=== PATIENT | female | born 1955 | race African-American/Black ===

== ENCOUNTER 2017-11-06 10:32 | Outpatient (CLI) | payer OTHER ==
[~2017-11-06 10:32] MED LIST: ISOVUE-370 76%-LOCM 1 ML ONE
== END 2017-11-06 10:33 | disposition home or self-care (01) ==
LOC: BICCT 10:32
PROVIDERS: ATTEND Thoracic Surgery (Cardiothoracic Vascular Surgery)
DX: I70.222 Atherosclerosis of native arteries of extremities with rest pain, left leg (principal); I72.4 Aneurysm of artery of lower extremity
CPT/HCPCS: 75635; 82565

== ENCOUNTER 2018-07-15 16:47 | Inpatient (IN) | payer OTHER ==
[2018-07-15 17:21] LABS: Hemoglobin 6.1 g/dL (12.0-16.0); Mean Corpuscular HGB CONC 28.1 g/dL (32.0-36.0); Mean Corpuscular Hemoglobin 16.6 pg (27.0-31.0); Mean Platelet Volume 5.3 fL (7.4-10.4); Platelet Count 584 thou/uL (130-400); RBC Distribution Width 24.9 % (11.5-14.5); Red Blood Cell (RBC) Count 3.68 mill/uL (4.20-5.40); White Blood Cell (WBC) Count 9.8 thou/uL (4.8-10.8)
[2018-07-15 17:41] LABS: Anisocytosis MODERATE=16-30 cells (100X) (0-5/hpf); Band 2 % (5-11); Elliptocytes SLIGHT = 2-5 cells (100X) (0-1/hpf); Eosinophils 2 % (0-10); Hypochromia MODERATE=16-30 cells (100X) (0-5/hpf); Lymphocytes 22 % (21-51); MDiff Complete? YES; Microcytosis MARKED = >30 cells (100X) (0-5/hpf); Monocytes 4 % (0-10); Neutrophil 70 % (42-75); Platelet Morphology Comment Appears Increased; Target Cells SLIGHT = 2-5 cells (100X) (0-1/hpf)
[2018-07-15 17:46] LABS: ALT (SGPT) 14 U/L (8-55); AST (SGOT) 30 U/L (5-34); Alkaline Phosphatase 141 U/L (40-150); Anion Gap 15 mmol/L (10-20); BUN (Urea Nitrogen) 16 mg/dL (9.8-20.1); Bilirubin, Total Less than 0.2 mg/dL (0.2-1.2); Calc. Creatinine Clearance 0 mL/min (70-130); Carbon Dioxide 18 mmol/L (23-31); Chloride 107 mmol/L (98-107); Estimated GFR-MDRD 65; Globulin 3.4 g/dL (2.4-3.5); Glucose 88 mg/dL (80-115); Lipase 107 U/L (8-78); Potassium 5.1 mmol/L (3.5-5.1); Protein, Total 7.4 g/dL (6.0-8.3); Sodium 135 mmol/L (136-145)
[2018-07-15] MEDS ORDERED: Pantoprazole 40 MG VIAL ONE (18:44)
[2018-07-15 18:56] LABS: Bilirubin Negative (Negative); Blood, Urine Negative (Negative); Clarity CLOUDY (Clear); Glucose, Urine (Dipstick) Negative (Negative); Leukocyte Moderate (Negative); Nitrite Negative (Negative); Protein, Urine (Dipstick) Negative (Neg-Trace); Specific Gravity, Urine 1.008 (1.002-1.036); Urobilinogen 0.2 mg/dL (0.2-1.0); pH, Urine 5.5 (5.0-9.0)
[2018-07-15 18:59] LABS: Bacteria/HPF Rare-Few HPF (None Seen); Hyaline Casts/LPF 0-3 HYALINE CAST LPF (0-3 Hyaline); RBC/HPF 0-3 HPF (0-3)
[2018-07-15] MEDS ORDERED: Nitrofurantoin Monohyd/M-Cryst 100 MG CAP PO SCH (20:30)
[2018-07-15 20:56] VITALS: BMI 24.9
[2018-07-15 21:53] LABS: Hemoglobin 7.6 g/dL (12.0-16.0); Platelet Count 461 thou/uL (130-400)
[2018-07-15] MEDS ORDERED: Acetaminophen 325 MG TAB PO PRN (22:58)
[2018-07-15] MEDS ORDERED: Pantoprazole 40 MG VIAL IVP SCH (23:30)
[2018-07-16] MEDS: Sodium Chloride 0.9% 1,000 ML IV SCH ×2 (00:56→19:53)
--- NOTE | 2018-07-16 01:39 | HP ---
CHIEF COMPLAINT: Low H and H, dizziness, sent from PCP's office. HISTORY OF PRESENT ILLNESS: The patient is a 62-year-old female with history of hypertension and questionable peripheral vascular disease and CAD, who presents to the hospital after being found anemic. The patient states that she went for a routine physical to her PCP and routine blood work indicated that the patient had severe anemia. The patient further states that she has been having some dark stools, which has been going on for a while. She also states that she has had dizzy spells in the past to the point that she has passed out. The patient did not seek any medical help at that time. The patient also states that she has been taking care of her 90-year-old uncle; therefore, she has been not been seeing her physicians very frequently. The patient also has been following up with Dr. Hogan for I believe questionable peripheral vascular disease. She also states that she is supposed to follow up with Cardiology for some workup. Currently, she denies any fevers or chills. She states at times she does get short of breath with minimal exertion. She has had 2 units of blood in [place] in the past and has been told that she has been anemic. Furthermore, she also states that she has been having some burning like sensation, especially with spicy foods and has been having some epigastric tenderness and pain. The patient states that she has been trying to take [id number]-lnehllb medications without any relief. The patient again has never had an endoscopy. She was supposed to follow up with the compensation and hris analyst. PAST MEDICAL HISTORY: She has a history of anemia. She has a history of hepatitis C, history off CAD stent 2 years ago, and hypertension. SOCIAL HISTORY: She denies any smoking history. She does use occasional marijuana. Occasional alcohol use. She is a full code and lives alone. FAMILY HISTORY: Father had kidney disease. Mother had lung disease. REVIEW OF SYSTEMS: All negative except for the ones mentioned above in the HPI. PAST SURGICAL HISTORY: The patient states that she did have a tubal ligation and she had some surgery that was performed by Dr. Hogan, however, was unable to tell me what type of surgery this was. ALLERGIES: SHE IS ALLERGIC TO PENICILLIN. MEDICATIONS: She takes: 1. Atorvastatin 40 mg daily. 2. Amlodipine 10 mg daily. 3. Clopidogrel 75 mg daily. 4. Carvedilol 6.25 twice a day. 5. Regular Tylenol. 6. She also takes cilostazol 100 mg one twice a day. PHYSICAL EXAMINATION: VITAL SIGNS: Temperature 98.2, 96% on room air, respirations 18, pulse of 89, blood pressure 139/73. GENERAL: She is awake, alert, and oriented x3. Does not appear in any distress. HEENT: Normocephalic, atraumatic. No lymphadenopathy noted. CV: S1 and S2 present. No murmurs, rubs, or gallops. LUNGS: Clear to auscultation. No rhonchi or wheezes noted. ABDOMEN: Soft. Bowel sounds are present x2. She does have significant pain upon palpation to her epigastric and her left upper quadrant and left lower quadrant. NEUROVASCULAR: No focal deficits noted. SKIN: No cuts, lesions, bruises noted. PSYCH: The patient is awake, alert, and oriented x3. LABORATORY RESULTS: WBCs of 9.8, hemoglobin of 6.1, MCV is 59, platelets of 584. Her chemistry indicates sodium of 135, potassium of 5.1, BUN of 16, creatinine of 1.04. ASSESSMENT AND PLAN: The patient is a 62-year-old female who presents to the hospital sent by PCP for anemia. 1. Acute anemia, most likely secondary to a combination of iron deficiency anemia and also possibly upper GI bleed. The patient states that she has been having some dark stools. Also, has been having significant amount of reflux and she is very tender upon palpation to her epigastric area. I will start her on Protonix b.i.d., consult GI. Keep her n.p.o. after midnight. Start her on some gentle hydration. She is currently getting blood transfusion. I will also check iron studies. She will definitely need some iron transfusion and we will continue to monitor. She is very hypochromic also on her differential in her CBC. 2. Coronary artery disease. The patient states she takes Plavix daily. Her last stent was put in about 2 years ago. However, she stated that she had a procedure done by Dr. Hogan, unclear of the procedure. We recommend getting records from Dr. Hogan's office for further evaluation. I will hold the Plavix for now and then continue to monitor. 3. Questionable history of peripheral vascular disease. The patient was supposed to follow up with Dr. Hogan for a procedure; however, he wanted her to follow up with Cardiology prior for him to do any other procedures. 4. Hypertension. We will hold her antihypertensives for now. 5. Hyperlipidemia. We will continue her statin. 6. Deep vein thrombosis prophylaxis. We will put the patient on SCDs. Job ID: [id number]
[2018-07-16 05:40] LABS: Anion Gap 12 mmol/L (10-20); BUN (Urea Nitrogen) 13 mg/dL (9.8-20.1); Carbon Dioxide 18 mmol/L (23-31); Chloride 113 mmol/L (98-107); Potassium 4.3 mmol/L (3.5-5.1); Sodium 139 mmol/L (136-145)
[2018-07-16 05:41] LABS: Calc. Creatinine Clearance 78 mL/min (70-130); Calcium 8.6 mg/dL (7.8-10.44); Estimated GFR-MDRD 84; Glucose 87 mg/dL (80-115); Iron 18 ug/dL (50-170); Iron Binding Capacity, Total 445 mcg/dL (265-497)
[2018-07-16 06:00] LABS: Anisocytosis MODERATE=16-30 cells (100X) (0-5/hpf); Band 7 % (5-11); Elliptocytes SLIGHT = 2-5 cells (100X) (0-1/hpf); Eosinophils 2 % (0-10); Hemoglobin 8.8 g/dL (12.0-16.0); Hypochromia MODERATE=16-30 cells (100X) (0-5/hpf); Lymphocytes 24 % (21-51); MDiff Complete? YES; Mean Corpuscular HGB CONC 30.6 g/dL (32.0-36.0); Mean Corpuscular Hemoglobin 21.3 pg (27.0-31.0); Mean Corpuscular Volume 69.6 fL (78.0-98.0); Monocytes 12 % (0-10); Neutrophil 55 % (42-75); Platelet Count 427 thou/uL (130-400); Platelet Morphology Comment Appears Adequate; RBC Distribution Width 28.4 % (11.5-14.5); Red Blood Cell (RBC) Count 4.14 mill/uL (4.20-5.40); Schistocytes SLIGHT = 2-5 cells (100X) (0-1/hpf); White Blood Cell (WBC) Count 7.9 thou/uL (4.8-10.8)
[2018-07-16] MEDS: Pantoprazole 40 MG VIAL IVP SCH ×2 (10:16→19:53)
--- NOTE | 2018-07-16 15:25 | PDOC.PN ---
- Subjective Encounter Start Date: 07/16/18 Encounter Start Time: 15:20 Subjective: f/u for symptomatic anemia and suspected GI blood loss s/p -: 2u PRBC's. Feels better overall today. - Objective Resuscitation Status - Order Detail: 07/15/18 22:58 Resuscitation Status Routine Resuscitation Status: FULL: Full Resuscitation MAR Reviewed: Yes Vital Signs & Weight: Vital Signs (12 hours) Temp Pulse Resp BP Pulse Ox 07/16/18 12:00 97.0 F L 86 16 122/57 L 100 07/16/18 08:00 97.5 F L 91 16 126/58 L 94 L 07/16/18 04:00 98.1 F 80 18 123/57 L 96 Weight Weight 159 lb 2.78 oz I&O: 07/15/18 07/16/18 07/17/18 06:59 06:59 06:59 Intake Total 350 Balance 350 Result Diagrams: 07/16/18 04:47 07/16/18 04:47 Additional Labs: Accuchecks 07/16/18 11:15 POC Glucose 101 Microbiology 07/15/18 17:43 Stool - Pending Stool Occult Blood (JONI) - Final 07/15/18 18:45 Urine clean catch Urine Culture - Preliminary NO GROWTH AT 12 HOURS Laboratory Tests 07/15/18 07/15/18 07/15/18 17:06 17:06 21:20 Hgb 6.1 L 7.6 L Sodium 135 L Creatinine 1.04 Iron TIBC % Saturation Ferritin Lipase 107 H 07/16/18 07/16/18 04:47 04:47 Hgb Sodium Creatinine Iron 18 L TIBC 445 % Saturation 4 L Ferritin 9.16 L Lipase EKG Reviewed by me: Yes (Tele - SR) Phys Exam - Physical Examination Constitutional: NAD HEENT: PERRLA, sclera anicteric, oral pharynx no lesions Neck: no nodes, no JVD, supple, full ROM Respiratory: no wheezing, no rales, no rhonchi, clear to auscultation bilateral S1, S2 Cardiovascular: RRR, no significant murmur, no rub, gallop Gastrointestinal: soft, non-tender, no distention, positive bowel sounds Musculoskeletal: no edema, pulses present Neurological: normal sensation, moves all 4 limbs Psychiatric: A&O x 3 Skin: normal turgor, cap refill <2 seconds Dx/Plan (1) Symptomatic anemia Code(s): D64.9 - ANEMIA, UNSPECIFIED Status: Acute Comment: Suspected GI loss in conjunction with iron-deficiency, s/p 2u PRBC's, serial H/H, hold anticoagulation/NSAIDs, plan for endoscopy in am, continue Protonix (2) Iron deficiency anemia Code(s): D50.9 - IRON DEFICIENCY ANEMIA, UNSPECIFIED Status: Chronic Comment : IV Iron infusion today, FeSO4 for outpt rx (3) PVD (peripheral vascular disease) Code(s): I73.9 - PERIPHERAL VASCULAR DISEASE, UNSPECIFIED Status: Chronic Comment: Resume antiplatelets after endoscopy (4) CAD (coronary artery disease) Code(s): I25.10 - ATHSCL HEART DISEASE OF [place] CORONARY ARTERY W/O ANG PCTRS Status: Chronic Comment: Med mgmt (5) HTN (hypertension) Code(s): I10 - ESSENTIAL (PRIMARY) HYPERTENSION Status: Chronic Qualifiers: Hypertension type: essential hypertension Qualified Code(s): I10 - Essential (primary) hypertension Comment: Resume home BP regimen, serial monitoring - Plan out of bed/ambulate, DVT proph w/SCDs Stable currently -: Continue Protonix 40mg IV BID -: Continue IVF's -: IV Iron infusion today -: AM lab: BMP, CBC * EGD/colonoscopy in am
[2018-07-16] MEDS ORDERED: IRON SUCROSE COMPLEX 100 MG/5 ML SLOW IVP SCH (15:30)
[2018-07-16] MEDS ORDERED: Albuterol Sulfate 2.5 mg/3 ml Neb NEB PRN (15:32)
[2018-07-16] MEDS ORDERED: Iron, Sodium Ferric Gluconate 125 MG in Sodium Chloride 0.9% 100 ML IVPB SCH (16:00)
[2018-07-16] MEDS ORDERED: GoLYTELY 4,000 ml Bottle PO SCH (18:00)
[2018-07-16] MEDS: Carvedilol 6.25 MG TAB PO SCH (19:52)
[2018-07-16] MEDS: Cyclobenzaprine 10 MG TAB PO SCH (19:52)
--- NOTE | 2018-07-16 23:31 | CON ---
DATE OF CONSULTATION: 07/16/2018 REASON FOR CONSULTATION: Iron deficiency anemia, symptomatic anemia. CONSULTING PHYSICIAN: Dr. Janae Wilkerson. HISTORY OF PRESENT ILLNESS: The patient is a 62-year-old female with past medical history of chronic hepatitis C, coronary artery disease status post stent placement, hypertension, anemia and questionable peripheral vascular disease, presenting with complaints of dizziness and weakness. She states that over the last 6 months she has been having increased episodes of dizziness, weakness in her bilateral lower extremities, increased shortness of breath/dyspnea on exertion and intermittent episodes of minimal left-sided chest pain. 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 She also endorses increased midepigastric abdominal pain characterized as a substernal pyrosis/burning-type sensation that is associated with an acid taste in the back of her mouth and mild regurgitation type symptoms. She does not endorse any exacerbating factors, but it is worse at night and she denies any alleviating symptoms including the administration of Tums/antacids. She does have some mild relief in her symptoms with the administration of Prilosec however though. With the above symptoms, it prompted her to see her primary care physician who then marvin routine labs and noted she had a significant anemia and recommended that she seek healthcare assistance at [facility]. Upon review of her labs, she is presenting with a significant anemia, which could be further contributing what is going on. She denies any episodes of GI bleeding although she has had some darker colored stools within the last few months, but she is taking a multivitamin that contains increased amounts of iron. Of note, the patient does take aspirin 325 mg daily as part of cardiac prophylaxis. More recently, she has been taking Aleve for general aches and pains. REVIEW OF SYSTEMS: A 10-category review of systems was obtained with all responses negative except for the pertinent positives as listed in HPI. PAST MEDICAL HISTORY: As per HPI. PAST SURGICAL HISTORY: Bilateral tubal ligation. FAMILY HISTORY: Denies any GI malignancies. She denies any history of colonic polyps or colon cancer. SOCIAL HISTORY: Denies any tobacco or illicit drug use. However, she does use occasional marijuana and occasional consumption of alcohol. OUTPATIENT MEDICATIONS: Reviewed. ALLERGIES: PENICILLIN. PHYSICAL EXAMINATION: VITAL SIGNS: Temperature 98.1, pulse 82, blood pressure 133/72, respiratory rate 18, saturating 99% on room air. GENERAL: The patient is lying in bed, in no acute distress. Alert and oriented x4. HEENT: Normocephalic, atraumatic. No scleral icterus or JVD noted. RESPIRATORY: Clear to auscultation bilaterally with no discernible wheezes or rales. CARDIOVASCULAR: Regular rate and rhythm with no discernible murmurs, gallops, or rubs. ABDOMEN: Normoactive bowel sounds, soft, nondistended, tenderness to palpation in all abdominal quadrants. EXTREMITIES: No cyanosis, clubbing, or edema. LABORATORY DATA: CBC with a white blood cell count of 7.9, hemoglobin 8.8, hematocrit 28.8, platelets 427, MCV 59, RDW 24, iron 18, ferritin 9.16, TIBC 445. Chemistry with a sodium of 139, potassium 4.3, chloride 113, CO2 of 18, BUN 13, creatinine 0.83, glucose 87. AST 30, ALT 14, alkaline phosphatase 141, total bilirubin less than 0.2. IMAGING DATA: No current GI imaging is available for review. ASSESSMENT AND PLAN: The patient is a 62-year-old female with past medical history of chronic hepatitis C infection, coronary artery disease status post stent placement, hypertension, anemia and questionable peripheral vascular disease presenting with symptomatic anemia/iron deficiency anemia. Iron deficiency anemia/symptomatic anemia. The patient is presenting with a 6 month history of increased dizziness, weakness in her bilateral lower extremities, increased dyspnea on exertion and intermittent left-sided chest pain combined with a significantly decreased hemoglobin and hematocrit, decreased MCV, increased RDW and iron indices consistent with an iron deficiency anemia and while she does endorse increased midepigastric abdominal pain, she denies any hematemesis, melena, or hematochezia. With the increase in her abdominal pain as well as a concurrent administration of both aspirin and Aleve, it could increase her risk of gastric ulceration and subsequent bleeding. However, the differential could include esophagitis from acid reflux, gastritis, peptic ulcer disease arteriovenous malformation, Dieulafoy lesion and/or GI neoplasm. Given the fact that she has never had a colonoscopy before, I would also recommend colonoscopy for further evaluation of this unknown iron deficiency anemia. RECOMMENDATIONS: 1. We would continue to trend H and H and transfuse as necessary to maintain an H and H of 10/20. 2. Continue to monitor clinically for signs of active GI bleeding. 3. We will place the patient on a clear liquid diet today with GoLYTELY administration tonight in anticipation of both EGD and colonoscopy tomorrow. 4. We would continue the patient on PPI b.i.d. We would avoid any NSAIDs. 5. We will continue to hold Plavix for now in light of possible GI bleed with recommendations to restart following the endoscopies. 6. We will continue to follow. Please call with any questions. Job ID: [id number]
[2018-07-17 07:28] LABS: Hemoglobin 9.9 g/dL (12.0-16.0); Mean Corpuscular HGB CONC 30.7 g/dL (32.0-36.0); Mean Corpuscular Hemoglobin 20.9 pg (27.0-31.0); Mean Corpuscular Volume 68.2 fL (78.0-98.0); Mean Platelet Volume 5.1 fL (7.4-10.4); Platelet Count 438 thou/uL (130-400); RBC Distribution Width 29.3 % (11.5-14.5); Red Blood Cell (RBC) Count 4.73 mill/uL (4.20-5.40); White Blood Cell (WBC) Count 6.5 thou/uL (4.8-10.8)
[2018-07-17 07:32] LABS: Anion Gap 11 mmol/L (10-20); BUN (Urea Nitrogen) 7 mg/dL (9.8-20.1); Calc. Creatinine Clearance 76 mL/min (70-130); Calcium 9.5 mg/dL (7.8-10.44); Carbon Dioxide 20 mmol/L (23-31); Chloride 112 mmol/L (98-107); Estimated GFR-MDRD 81; Glucose 85 mg/dL (80-115); Potassium 4.1 mmol/L (3.5-5.1); Sodium 139 mmol/L (136-145)
[2018-07-17 08:38] LABS: Eosinophils 2 % (0-10); Hypochromia MODERATE=16-30 cells (100X) (0-5/hpf); Lymphocytes 24 % (21-51); MDiff Complete? YES; Microcytosis MODERATE=15-30 cells (100X) (0-5/hpf); Monocytes 4 % (0-10); Neutrophil 69 % (42-75); Platelet Morphology Comment Appears Increased; Polychromasia MODERATE = 3-4 cells (100X) (0-2/hpf); Reactive Lymphocytes 1 % (0-10)
[2018-07-17] MEDS: Amlodipine 10 MG TAB PO SCH (09:06)
[2018-07-17] MEDS: Carvedilol 6.25 MG TAB PO SCH ×2 (09:06→20:37)
[2018-07-17] MEDS: Pantoprazole 40 MG VIAL IVP SCH (09:07)
[2018-07-17] MEDS: Multivitamin W/ Minerals 1 TAB PO SCH (09:07)
[2018-07-17] MEDS ORDERED: Lidocaine Viscous Sol 2% 15 ml UD Cup ONE (12:23)
--- NOTE | 2018-07-17 15:46 | OP ---
DATE OF PROCEDURE: 07/17/2018 PROCEDURES PERFORMED: 1. Esophagogastroduodenoscopy. 2. Colonoscopy with snare polypectomy. PREMEDICATION: Given by Anesthesiology Department. PREPROCEDURE DIAGNOSIS: Iron-deficiency anemia with heme-negative stool. POSTPROCEDURE DIAGNOSES: 1. Normal upper endoscopy. 2. Transverse and sigmoid colon polyps, status post cold snare polypectomy. 3. Otherwise, normal colon exam except for hemorrhoids. DESCRIPTION OF PROCEDURE: Written consents were obtained prior to procedure. After adequate sedation, a forward-viewing endoscope was advanced down the stomach under direct vision through the third portion of duodenum. Both the second portion and the bulb appeared normal. The pylorus was patent. The gastric antrum, body, fundus, and cardia all appeared normal. The GE junction was noted at 38 cm from the incisors. Lower, mid, and upper esophagus appeared normal. The patient was then repositioned for colon exam. Digital exam performed and it was normal. The endoscope was advanced to the cecum. The quality of the bowel prep was good. The cecum, ileocecal valve, and appendiceal orifice were visualized and appeared normal. The ascending colon and hepatic flexure appeared normal. In the mid transverse, a small 4 mm sessile polyp was noted and it was removed with cold snare. The splenic flexure and descending colon appeared normal. In the sigmoid colon, a 6 mm sessile polyp was noted and was removed with cold snare. The rectosigmoid colon appeared normal. Retroflexion in the rectal vault showed grade 2 internal hemorrhoids without any evidence of bleeding. The instrument was then fully removed. The patient tolerated the procedure well. ASSESSMENT: 1. Normal upper endoscopy. 2. Two colon polyps and internal hemorrhoids, otherwise normal colon exam. 3. No obvious source of enteric bleeding from this exam. RECOMMENDATIONS: 1. Await biopsy results of the polyps. 2. Start oral iron therapy since the patient has heme-negative stools. 3. Monitor for response on oral iron therapy. If suboptimal, will need Hematology evaluation for possible intravenous iron. Job ID: [id number]
[2018-07-17] MEDS ORDERED: Lidocaine 1% PF 5 ML VIAL ONE (16:10)
[2018-07-17] MEDS ORDERED: PROPOFOL 200 MG/20 ML VIAL ONE (16:10)
[2018-07-17] MEDS ORDERED: PHENYLEPHRINE-NS 100 MCG/ML 10 ML SYRINGE ONE (16:10)
[2018-07-17] MEDS: Sodium Chloride 0.9% 1,000 ML IV SCH (16:14)
--- NOTE | 2018-07-17 17:29 | PDOC.PN ---
- Subjective Encounter Start Date: 07/17/18 Encounter Start Time: 17:20 Subjective: f/u for severe anemia with negative EGD/colonoscopy and iron- deficiency -: component. Received IV Iron infusion and s/p 2u PRBC's. Feels ok overall. - Objective Resuscitation Status - Order Detail: 07/15/18 22:58 Resuscitation Status Routine Resuscitation Status: FULL: Full Resuscitation MAR Reviewed: Yes Vital Signs & Weight: Vital Signs (12 hours) Temp Pulse Resp BP BP Pulse Ox 07/17/18 12:00 98.5 F 70 16 136/65 96 07/17/18 09:06 90 117/78 07/17/18 08:00 97.4 F L 90 18 117/78 97 07/17/18 07:58 95 Weight Weight 159 lb 2.78 oz I&O: 07/16/18 07/17/18 07/18/18 06:59 06:59 06:59 Intake Total 350 2000 Output Total 6000 Balance 350 -4000 Result Diagrams: 07/17/18 06:39 07/17/18 06:39 Additional Labs: Accuchecks 07/17/18 07/17/18 16:46 10:53 POC Glucose 119 H 93 Microbiology 07/15/18 17:43 Stool - Pending Stool Occult Blood (JONI) - Final 07/15/18 18:45 Urine clean catch Urine Culture - Preliminary NO GROWTH AT 12 HOURS Laboratory Tests 07/15/18 07/15/18 07/15/18 17:06 17:06 21:20 Hgb 6.1 L 7.6 L Sodium 135 L Creatinine 1.04 Iron TIBC % Saturation Ferritin Lipase 107 H 07/16/18 07/16/18 04:47 04:47 Hgb Sodium Creatinine Iron 18 L TIBC 445 % Saturation 4 L Ferritin 9.16 L Lipase Radiology Reviewed by me: Yes (EGD/colonoscopy - negative except for polyps) EKG Reviewed by me: Yes (Tele - SR) Phys Exam - Physical Examination Constitutional: NAD HEENT: PERRLA, sclera anicteric, oral pharynx no lesions Neck: no nodes, no JVD, supple, full ROM Respiratory: no wheezing, no rales, no rhonchi, clear to auscultation bilateral Cardiovascular: RRR, no significant murmur, no rub, gallop Gastrointestinal: soft, non-tender, no distention, positive bowel sounds Musculoskeletal: no edema, pulses present Neurological: normal sensation, moves all 4 limbs Psychiatric: A&O x 3 Skin: normal turgor, cap refill <2 seconds Dx/Plan (1) Symptomatic anemia Code(s): D64.9 - ANEMIA, UNSPECIFIED Status: Acute Comment: Suspected due to severe iron-deficiency, s/p 2u PRBC's, serial H/H, FeSO4 325mg BID (2) Iron deficiency anemia Code(s): D50.9 - IRON DEFICIENCY ANEMIA, UNSPECIFIED Status: Chronic Comment : IV Iron infusion today, FeSO4 for outpt rx (3) PVD (peripheral vascular disease) Code(s): I73.9 - PERIPHERAL VASCULAR DISEASE, UNSPECIFIED Status: Chronic Comment: Resume antiplatelets after endoscopy (4) CAD (coronary artery disease) Code(s): I25.10 - ATHSCL HEART DISEASE OF [place] CORONARY ARTERY W/O ANG PCTRS Status: Chronic Comment: Med mgmt (5) HTN (hypertension) Code(s): I10 - ESSENTIAL (PRIMARY) HYPERTENSION Status: Chronic Qualifiers: Hypertension type: essential hypertension Qualified Code(s): I10 - Essential (primary) hypertension Comment: Resume home BP regimen, serial monitoring - Plan out of bed/ambulate, DVT proph w/SCDs Stable currently -: Start FeSO4 325mg BID -: OOB/ambulate -: Change Protonix 40mg po daily -: [place] home in am 07/18/18 * .
[2018-07-17] MEDS: Cyclobenzaprine 10 MG TAB PO SCH (20:36)
[2018-07-17] MEDS: Ferrous Sulfate 325 MG TAB PO SCH (20:37)
[2018-07-17] MEDS: Ferrex 150 Plus (iron poly cmplx) PO SCH (21:39)
[2018-07-18] MEDS: Multivitamin W/ Minerals 1 TAB PO SCH (08:10)
[2018-07-18] MEDS: Ferrous Sulfate 325 MG TAB PO SCH (08:10)
[2018-07-18] MEDS: Carvedilol 6.25 MG TAB PO SCH (08:11)
[2018-07-18] MEDS: Ferrex 150 Plus (iron poly cmplx) PO SCH (08:11)
[2018-07-18] MEDS: Amlodipine 10 MG TAB PO SCH (08:11)
[2018-07-18] MEDS: Sodium Chloride 0.9% 1,000 ML IV SCH (13:24)
--- NOTE | 2018-07-18 13:39 | PDOC.PN ---
- Subjective Encounter Start Date: 07/18/18 Encounter Start Time: 13:37 Ms. Cifuentes was seen today in follow-up of GI bleed. She does not have any complaints. - Objective Resuscitation Status - Order Detail: 07/15/18 22:58 Resuscitation Status Routine Resuscitation Status: FULL: Full Resuscitation MAR Reviewed: Yes Vital Signs & Weight: Vital Signs (12 hours) Temp Pulse Resp BP BP Pulse Ox 07/18/18 08:11 128/62 07/18/18 08:00 97.2 F L 81 17 128/62 94 L 07/18/18 03:35 98.5 F 83 16 122/58 L 95 Weight Weight 159 lb 2.78 oz I&O: 07/17/18 07/18/18 07/19/18 06:59 06:59 06:59 Intake Total 2000 Output Total 6000 Balance -4000 Result Diagrams: 07/17/18 06:39 07/17/18 06:39 Additional Labs: Accuchecks 07/17/18 07/17/18 20:09 16:46 POC Glucose 117 H 119 H Phys Exam - Physical Examination HEENT: PERRLA Respiratory: no wheezing, no rales, no rhonchi, clear to auscultation bilateral Cardiovascular: RRR, no significant murmur, no rub Gastrointestinal: soft, non-tender, no distention, positive bowel sounds Musculoskeletal: no edema, pulses present Dx/Plan (1) GI bleed Code(s): K92.2 - GASTROINTESTINAL HEMORRHAGE, UNSPECIFIED Status: Acute (2) CAD (coronary artery disease) Code(s): I25.10 - ATHSCL HEART DISEASE OF [place] CORONARY ARTERY W/O ANG PCTRS Status: Chronic Comment: Med mgmt (3) HTN (hypertension) Code(s): I10 - ESSENTIAL (PRIMARY) HYPERTENSION Status: Chronic Qualifiers: Hypertension type: essential hypertension Qualified Code(s): I10 - Essential (primary) hypertension Comment: Resume home BP regimen, serial monitoring (4) Iron deficiency anemia Code(s): D50.9 - IRON DEFICIENCY ANEMIA, UNSPECIFIED Status: Acute Comment: IV Iron infusion today, FeSO4 for outpt rx - Plan * GI- bleed- ? etiology EGD and Colonoscopy was essentially negative * Continue iron supplementation * Will discontinue home on a Protonix * CAD- stable * HTN- blood pressure is stable.
[2018-07-18 14:09] VITALS: BP 120/64; TEMP 97.9
--- NOTE | 2018-07-18 18:50 | DIS ---
DATE OF ADMISSION: 07/15/2018 DATE OF DISCHARGE: 07/18/2018 DISCHARGE DISPOSITION: Home. PRIMARY DISCHARGE DIAGNOSES: 1. Gastrointestinal bleed. 2. Iron deficiency anemia. 3. Hypertension. 4. Coronary artery disease. 5. Hepatitis C. DISCHARGE MEDICATIONS: Include; 1. Protonix 40 mg p.o. daily. 2. Iron sulfate 325 mg twice a day. 3. Flexeril 10 mg at bedtime. 4. Plavix 75 mg daily. 5. Pletal 100 mg twice a day. 6. Coreg 6.25 mg twice daily. 7. Lipitor 40 mg daily. 8. Amlodipine 10 mg daily. 9. Albuterol nebs q.6 as needed. 10. Tylenol 325 mg t.i.d. as needed. CODE STATUS: Full code. ALLERGIES: TO PENICILLIN. PROCEDURES DONE DURING ADMISSION: The patient had an EGD, which was essentially negative and also had a colonoscopy with polypectomy in which the patient had 2 polyps removed by snare. HOSPITAL COURSE: Ms. Cifuentes is a pleasant 62-year-old female, who presented to the emergency room complaining of dizziness and she was also found to have an extremely low hemoglobin. She was sent from her primary care physician's office as her hemoglobin level was 6.1. She was evaluated in the ER and admitted. She was seen by Gastroenterology and underwent EGD as well as colonoscopy. There was no evidence of where the bleeding came from. She was transfused 2 units of packed red blood cell in her hospitalization stay and her hemoglobin on 07/17 was 9.9. She was clinically stable and able to be discharged home on 07/18/2018 in stable condition. Job ID: [id number]
== END 2018-07-18 14:31 | disposition home or self-care (01) | DRG 812 ==
LOC: ERS 16:47 → 2NO 17:49
PROVIDERS: ADMIT Internal Medicine; ATTEND Internal Medicine
PROC: 30233N1 Transfusion of Nonautologous Red Blood Cells into Peripheral Vein, Percutaneous Approach (ICD-10-PCS; 2018-07-15)
PROC: 0DJ08ZZ Inspection of Upper Intestinal Tract, Via Natural or Artificial Opening Endoscopic (ICD-10-PCS; principal; 2018-07-17)
PROC: 0DBN8ZX Excision of Sigmoid Colon, Via Natural or Artificial Opening Endoscopic, Diagnostic (ICD-10-PCS; 2018-07-17)
PROC: 0DBL8ZX Excision of Transverse Colon, Via Natural or Artificial Opening Endoscopic, Diagnostic (ICD-10-PCS; 2018-07-17)
DX: D50.9 Iron deficiency anemia, unspecified (principal); K92.2 Gastrointestinal hemorrhage, unspecified; I10 Essential (primary) hypertension; I25.10 Atherosclerotic heart disease of native coronary artery without angina pectoris; B19.20 Unspecified viral hepatitis C without hepatic coma; E78.5 Hyperlipidemia, unspecified; K64.1 Second degree hemorrhoids; D12.5 Benign neoplasm of sigmoid colon; D12.3 Benign neoplasm of transverse colon; Z88.0 Allergy status to penicillin; Z95.5 Presence of coronary angioplasty implant and graft; Z84.1 Family history of disorders of kidney and ureter; Z83.6 Family history of other diseases of the respiratory system
CPT/HCPCS: 36415; 36416; 36430; 80048; 80053; 81003; 81015; 82274; 82728; 83540; 83550; 83690; 85007; 85025; 85027; 85060; 86850; 86900; 86901; 87086; 88305; 93005; 96374; C9113; J2001; J2704; J2916; J3490; P9016

== ENCOUNTER 2018-12-24 11:59 | Outpatient (CLI) | payer MEDICARE, MEDICAID ==
[~2018-12-24 11:59] MED LIST changes: -ISOVUE-370 76%-LOCM 1 ML ONE; +Iopamidol 370 76% 100 ML VIAL ONE
--- NOTE | 2018-12-24 13:44 | CT ---
CTA Angio Aort Bilat Rnoff W History: Leg pain and peripheral vascular disease Comparison: CT angiogram with runoff 2018 Findings: CT angiogram of the abdomen and pelvis with runoff to the feet was performed after the intr avenous administration of contrast. 3-D rendering provided. Large sliding hiatal hernia. Scattered small centrilobular nodules in the lower lobes. No pleural effusion. No pericardial effusion. There are multiple areas of arterial hyperenhancement w ithin the liver. This includes a 4 mm nodule in segment VIII, image 26. 9 mm nodule in segment VIII, image 26. 7 mm nodule segment V, image 44. 4 mm nodule in segment V, image 59.. Other smaller m ore peripheral nodules in hepatic segment II. Spleen is unremarkable. There is a hypodensity within the ventral pancreatic head measuring 9 mm. Thao creatic duct is normal. No intrahepatic or extrahepatic biliary dilatation. Gallbladder is unremarkable. Small nodule right lateral adrenal limb is unchanged measuring up to 8 mm. No hydronephrosis. Multiple scars of both renal cortices. No retroperitoneal periaortic adenopathy. No dilated loops of large or small bowel. Visualized thoracic spine and the lumbar spine are without fracture. Osseous pelvis is intact. Vessels: The abdominal aorta is without aneurysmal dilatation. Moderate atherosclerotic plaque. Appro ximate 40% narrowing of the celiac trunk due to calcific and soft plaque with adequate peripheral flow. Severe mesenteric artery is patent. Inferior mesenteric artery is patent. The right external iliac artery is occluded. Internal iliac artery is patent. The common femoral jaz ry is occluded. There is flow within the femoral artery from collaterals of the inferior epigastric artery. Right femoral artery is patent. Popliteal artery is patent. Trifurcation is patent. Left common iliac artery is patent. High-grade atherosclerotic plaque of the external iliac artery. T here is pseudoaneurysm of the left common femoral artery measuring 12 mm, similar. Common femoral artery is occluded. Deep femoral artery is patent. There are collaterals to the popliteal artery from the deep femoral artery. Trifurcation is patent. Impression: 1. Occlusion of the right external iliac artery with collaterals from the inferior epigastric artery. Trifurcation is patent. 2. Pseudoaneurysm of the left common femoral artery which has not increased in size. 3. Occlusion of the left femoral artery with collaterals from the popliteal down into the trifurcatio n from the deep femoral artery. 4. Numerous small peripheral arterial hyperenhancing foci likely vascular shunts. Close attention on follow-up imaging is recommended. 5. Large sliding hiatal hernia. Transcribed Date/Time: 12/24/2018 2:05 PM
== END 2018-12-24 12:00 | disposition home or self-care (01) ==
LOC: CT 11:59
PROVIDERS: ATTEND Thoracic Surgery (Cardiothoracic Vascular Surgery)
DX: I70.222 Atherosclerosis of native arteries of extremities with rest pain, left leg (principal); K44.9 Diaphragmatic hernia without obstruction or gangrene
CPT/HCPCS: 75635; 82565; Q9967

== ENCOUNTER 2019-01-16 08:35 | Day surgery (SDC) | payer MEDICARE, MEDICAID ==
[2019-01-15 17:04] VITALS: BMI 26.0
[2019-01-16 09:25] LABS: #Basophils 0.1 thou/uL (0.0-0.2); #Eosinphils 0.2 thou/uL (0.0-0.7); #Lymphocytes 2.3 thou/uL (1.20-3.40); #Monocytes 0.7 thou/uL (0.11-0.59); #Neutrophils 7.8 thou/uL (1.40-6.50); %Basophils 0.8 % (0.0-1.0); %Eosinophils 1.7 % (0.0-10.0); %Lymphocytes 21.1 % (21.0-51.0); %Neutrophils 70.4 % (42.0-75.0); Mean Corpuscular HGB CONC 31.3 g/dL (32.0-36.0); Mean Corpuscular Hemoglobin 28.8 pg (27.0-31.0); Mean Corpuscular Volume 92.2 fL (78.0-98.0); Mean Platelet Volume 9.5 fL (7.4-10.4); Platelet Count 230 thou/uL (130-400); RBC Distribution Width 14.6 % (11.5-14.5); Red Blood Cell (RBC) Count 4.86 mill/uL (4.20-5.40)
[2019-01-16 09:31] LABS: PTT 27.1 SEC (22.9-36.1); Prothrombin Time 12.8 SEC (12.0-14.7)
[2019-01-16 09:51] LABS: ALT (SGPT) 20 U/L (8-55); AST (SGOT) 21 U/L (5-34); Albumin 4.3 g/dL (3.4-4.8); Alkaline Phosphatase 142 U/L (40-110); Anion Gap 13 mmol/L (10-20); BUN (Urea Nitrogen) 16 mg/dL (9.8-20.1); Bilirubin, Total 0.4 mg/dL (0.2-1.2); Calc. Creatinine Clearance 77 mL/min (70-130); Calcium 9.7 mg/dL (7.8-10.44); Carbon Dioxide 22 mmol/L (23-31); Cardiac Risk 3.1 (Less than 4.5); Chloride 110 mmol/L (98-107); Cholesterol 142 mg/dl (< 200 Desired); Estimated GFR-MDRD 79; Globulin 3.5 g/dL (2.4-3.5); Glucose 86 mg/dL (80-115); HDL Cholesterol 46 mg/dL (>60 Neg Risk); LDL Cholesterol, Calculated 82 mg/dL; Potassium 4.4 mmol/L (3.5-5.1); Protein, Total 7.8 g/dL (6.0-8.3); Sodium 141 mmol/L (136-145); Triglycerides 72 mg/dL (Less than 150)
[2019-01-16] MEDS ORDERED: Heparin 10,000 UNITS/1 ML VIAL ONE (10:17)
[2019-01-16] MEDS ORDERED: Verapamil 5 MG/2 ML VIAL ONE (10:17)
[2019-01-16] MEDS ORDERED: Nitroglycerin 100MG/250ML BOT 250 ML ONE (10:17)
[2019-01-16] MEDS ORDERED: Lidocaine 1% (PF) 30 ML VIAL ONE (10:18)
[2019-01-16] MEDS ORDERED: Midazolam HCl 2 mg/2 ml Vial ONE (10:46)
[2019-01-16] MEDS ORDERED: Fentanyl 100 MCG/2 ML VIAL ONE (10:46)
== END 2019-01-16 15:40 | disposition home or self-care (01) ==
LOC: CCL 08:35
PROVIDERS: ATTEND Internal Medicine Cardiovascular Disease
PROC: 4A023N7 Measurement of Cardiac Sampling and Pressure, Left Heart, Percutaneous Approach (ICD-10-PCS; principal; 2019-01-16)
PROC: B2111ZZ Fluoroscopy of Multiple Coronary Arteries using Low Osmolar Contrast (ICD-10-PCS; 2019-01-16)
DX: I25.10 Atherosclerotic heart disease of native coronary artery without angina pectoris (principal); I10 Essential (primary) hypertension; I73.9 Peripheral vascular disease, unspecified; E78.00 Pure hypercholesterolemia, unspecified; F41.9 Anxiety disorder, unspecified; F32.9 Major depressive disorder, single episode, unspecified; K21.9 Gastro-esophageal reflux disease without esophagitis; D64.9 Anemia, unspecified; Z79.899 Other long term (current) drug therapy; Z87.891 Personal history of nicotine dependence; Z88.0 Allergy status to penicillin; Z95.5 Presence of coronary angioplasty implant and graft
CPT/HCPCS: 80053; 80061; 85025; 85610; 85730; 93005; 93010; 93454; 99152; C1769; J1644; J2001; J2250; J3010

== ENCOUNTER 2019-02-18 15:58 | Outpatient (CLI) | payer MEDICARE, MEDICAID ==
--- NOTE | 2019-02-18 16:24 | RAD ---
Chest 2 views HISTORY: Cough. Sinusitis. COMPARISON: 12/29/2012. FINDINGS: Cardiac silhouette and pulmonary vasculature are unremarkable. Mediastinum is midline with aortic calcification. No confluent airspace consolidation, pneumothorax, or pleural fluid. IMPRESSION: Atherosclerosis. No active cardiopulmonary abnormalities are otherwise demonstrated.
--- NOTE | 2019-02-18 16:25 | RAD ---
Paranasal sinuses 3 views HISTORY: Cough. Sinusitis. FINDINGS: No significant mucosal thickening or air-fluid levels are apparent. Visualized paranasal si nuses are well aerated. Calcific density at the anterior aspect of the left frontal sinus likely represents an osteoma. Orbital rims are intact. IMPRESSION: No radiographic evidence of acute paranasal sinusitis.
== END 2019-02-18 15:59 | disposition home or self-care (01) ==
LOC: BICRAD 15:58
PROVIDERS: ATTEND Internal Medicine
DX: J44.9 Chronic obstructive pulmonary disease, unspecified (principal); J01.90 Acute sinusitis, unspecified; I70.90 Unspecified atherosclerosis
CPT/HCPCS: 70220; 71046

== ENCOUNTER 2019-03-14 13:00 | Inpatient (IN) | payer MEDICARE, MEDICAID ==
[2019-03-14 14:20] LABS: Mean Corpuscular HGB CONC 31.4 g/dL (32.0-36.0); Mean Corpuscular Hemoglobin 28.7 pg (27.0-31.0); Mean Corpuscular Volume 91.3 fL (78.0-98.0); Mean Platelet Volume 8.4 fL (7.4-10.4); Platelet Count 338 thou/uL (130-400); RBC Distribution Width 14.5 % (11.5-14.5); Red Blood Cell (RBC) Count 4.53 mill/uL (4.20-5.40)
[2019-03-14 14:47] LABS: Anion Gap 13 mmol/L (10-20); BUN (Urea Nitrogen) 17 mg/dL (9.8-20.1); Calc. Creatinine Clearance 0 mL/min (70-130); Calcium 9.7 mg/dL (7.8-10.44); Carbon Dioxide 25 mmol/L (23-31); Chloride 106 mmol/L (98-107); Estimated GFR-MDRD 70; Glucose 80 mg/dL (80-115); Potassium 4.2 mmol/L (3.5-5.1); Sodium 140 mmol/L (136-145)
--- NOTE | 2019-03-14 19:21 | HP ---
DATE OF ANTICIPATED ADMISSION: 03/17/2019. CHIEF COMPLAINT: Crampy right calf pain on walking. HISTORY OF PRESENT ILLNESS: The patient is a 63-year-old woman, who until recently was a long-time smoker. She had previously undergone multiple percutaneous left lower extremity interventions, but ultimately required an open iliofemoral endarterectomy and profundoplasty for rest pain in early 2016. At that time, her rest pain was resolved, although she still had some claudication symptoms in her calf. Her right leg was asymptomatic at that time and she had a palpable femoral pulse since that time; however, she has developed crampy pain in her right calf on walking short distances. When I first saw her again in followup after we both had relocated here from [place], she had claudication symptoms just simply walking into the building when her ride had dropped her off at the front entrance. She was having some numbness in the foot at night, but no true rest pain. She had very recently quit smoking and her symptoms improved a little bit, but she still has claudication at one, sometimes 2 blocks. PAST MEDICAL HISTORY: 1. Significant for her above-mentioned peripheral vascular disease. 2. She has a known occluded left superficial femoral artery. 3. She has hypertension. 4. Hypercholesterolemia. 5. History of hepatitis C. 6. Previous history of alcohol abuse, but has been sober since September of 2011. 7. She has a history of coronary artery disease, having undergone previous circumflex system stenting. 8. She has GE reflux disease. HOME MEDICATIONS: 1. Norvasc 10 mg a day. 2. Coreg 6.25 mg b.i.d. 3. Aspirin 325 mg a day. 4. Plavix 75 mg a day. 5. Lipitor 40 mg a day. 6. Pletal 100 mg b.i.d. 7. Protonix 40 mg a day. 8. Vitamin. 9. Iron. 10. Fish oil supplements. 11. Chantix 0.5 mg twice a day. ALLERGIES: SHE REPORTS AN ALLERGY TO PENICILLIN. SOCIAL HISTORY: She has a long history of 1 to 1-1/2 pack of cigarette smoking a day, but she quit about a year and a half ago. FAMILY HISTORY: Her father at age 48 of kidney disease. Her mother at age 81, who was diagnosed with hypertension and coronary artery disease. REVIEW OF SYSTEMS: Notable for left hemispheric TIA about 4 years ago. She has no shortness of breath. No chest pain. No true rest pain. She claudicates as above. PHYSICAL EXAMINATION: VITAL SIGNS: She is 5 feet 7 inches, weighs 171 pounds, heart rate 79, blood pressure 114/69. HEENT: She has no xanthelasma. She has poor dentition. NECK: She has no JVD. She has bilateral carotid bruits. CHEST: Clear to auscultation. HEART: She has a regular rate and rhythm without murmur or gallop. ABDOMEN: Soft and nontender. EXTREMITIES: She has a palpable left femoral pulse with an audible bruit. Her right femoral pulse is not palpable and I hear no femoral bruit. She has no palpable pulses below the groin level. She has a fairly good Doppler signal in the left DP and a weak one on the right. I was not able to find either posterior tibial pulse. The right foot have toes that are little bit darker than the left with 1.5 seconds capillary refill and fairly brisk refill on the left. NEUROLOGIC AND MUSCULOSKELETAL: Nonfocal and she has no edema. Her aortogram with runoff shows a widely patent left iliac system with a patched distal external iliac and common femoral extending down on to the profunda with an occluded SFA. She has diffuse plaque in the aorta. She has diffuse disease in the right iliac system extending well up into the common iliac. She has reconstitution of the common femoral at least at the bifurcation and appears to have an intact superficial femoral and runoff through the tibial vessels to the foot. Her nuclear medicine stress test suggested a slight perfusion defect anteriorly with an EF of 45% at rest and 46% at stress. Her echocardiogram suggests an LVEF of 50% to 55% without any wall motion abnormalities. Cardiac catheterization demonstrated a right-dominant system with an occluded stent leading to a very small obtuse marginal in the circumflex system. The remainder of the circumflex system, the LAD system, and the right system were widely patent. Carotid ultrasonography showed a small amount of plaque at the bulb and proximal ICAs similar to ultrasonographic findings in May of 2016 with normal velocities and ratios. IMPRESSION AND RECOMMENDATIONS: Symptomatic aortoiliac disease. The patient's symptoms are merely claudication, but they are very limiting and I have had a long discussion with her about the elective nature of the revascularization procedure and she feels that her symptoms are bad enough to warrant a major operation to relieve them. I do not think that the extent of her disease is such that it is going to be amenable to a retroperitoneal approach to do unilateral bypass or endarterectomy , let alone a percutaneous approach and think that she would in the long run be best served with a conventional aortic anatomic revascularization. Job ID: [id number] MTDD
[2019-03-17] MEDS ORDERED: Clindamycin/D5W 900 mg/50 ml Premix Bag ONE ×2 (06:13→09:05)
[2019-03-17] MEDS ORDERED: Ropivacaine HCl/PF 750 ML in Premix Bag 1 BAG NERVE BLCK SCH (06:30)
[2019-03-17] MEDS ORDERED: Heparin 5,000 UNITS/ML VIAL ONE (06:39)
[2019-03-17] MEDS ORDERED: Protamine Sulfate 50 MG/5 ML VIAL ONE ×2 (06:39→11:43)
[2019-03-17] MEDS ORDERED: Ropivacaine HCl/PF 750 ML NERVE BLCK SCH (06:45)
[2019-03-17] MEDS ORDERED: Fentanyl 250 MCG/5 ML VIAL ONE (06:50)
[2019-03-17] MEDS ORDERED: Midazolam HCl 2 mg/2 ml Vial ONE ×2 (06:50→07:12)
[2019-03-17] MEDS ORDERED: Vecuronium 10 MG VIAL ONE ×2 (06:51→09:53)
[2019-03-17] MEDS ORDERED: Norepinephrine 4 MG/4 ML VIAL ONE ×2 (06:51→08:35)
[2019-03-17] MEDS ORDERED: Dexmedetomidine 200 MCG/2 ML VIAL ONE (06:51)
[2019-03-17] MEDS ORDERED: Heparin 10,000 UNITS/1 ML VIAL 30,000 UNITS in Sodium Chloride 0.9% 1,000 ML FS SCH (07:00)
[2019-03-17] MEDS ORDERED: Albuterol Sulfate 2.5 mg/3 ml Neb NEB PRN (07:36)
[2019-03-17] MEDS ORDERED: Fentanyl 100 MCG/2 ML VIAL SLOW IVP PRN ×2 (07:38)
[2019-03-17] MEDS ORDERED: Glycopyrrolate 0.2 MG/ML 5 ML SYRINGE ONE (09:53)
[2019-03-17] MEDS ORDERED: Dexamethasone 20 MG/5 ML VIAL ONE (09:53)
[2019-03-17] MEDS ORDERED: Ondansetron PF 4 MG/2 ML Vial ONE (09:53)
[2019-03-17] MEDS ORDERED: Lidocaine 1% PF 5 ML VIAL ONE (09:53)
[2019-03-17] MEDS ORDERED: PROPOFOL 200 MG/20 ML VIAL ONE (09:53)
[2019-03-17] MEDS ORDERED: Albumin 5% 500 ML ONE (10:13)
[2019-03-17] MEDS ORDERED: Ropivacaine 0.2% HCl/PF 20 ML ONE (10:41)
[2019-03-17] MEDS ORDERED: Protamine Sulfate 250 MG/25 ML VIAL ONE (11:42)
[2019-03-17] MEDS ORDERED: Ketorolac Tromethamine 15 MG/ML VIAL IVP SCH (12:00)
--- NOTE | 2019-03-17 13:41 | RAD ---
EXAM: CHEST ONE VIEW HISTORY: Central line placement. COMPARISON: Clinical 2018 FINDINGS: Cardiac silhouette is magnified by projection. Pulmonary vasculature is within normal limits. The rig ht lung is clear. There is increased density in the retrocardiac region left lung base. Endotracheal tube is noted in place with the tip at the level of thoracic inlet and overlying the T2 vertebral body. Right internal jugular vein central venous catheter is noted in place with the tip overlying the expected location of the cavoatrial junction. Nasogastric tube is noted in place which courses in the upper abdomen, but the tip is not imaged. The osseous structures are intact. IMPRESSION: 1. Lines and tubes in place as described above. No pneumothorax or pleural effusion is appreciated. 2. Increased density retrocardiac region left lung base. This is likely related to a hiatal hernia wh ich was seen on CTA abdomen on 12/24/2018.
[2019-03-17] MEDS ORDERED: Promethazine HCl 25 MG/ML VIAL IM PRN (13:49)
[2019-03-17] MEDS ORDERED: Promethazine HCl 25 MG/ML VIAL SLOW IVP PRN (13:49)
[2019-03-17] MEDS ORDERED: Ondansetron HCl/PF 4 MG/2 ML Vial IVP PRN (13:49)
[2019-03-17] MEDS ORDERED: Fentanyl 100 MCG/2 ML VIAL ONE (13:52)
[2019-03-17] MEDS: Sodium Chloride 0.9% 1,000 ML IV SCH ×3 (17:17→21:12)
[2019-03-17] MEDS: Acetaminophen 1,000 MG in Premix Bag 1 BAG IVPB SCH ×3 (17:20→21:12)
[2019-03-17] MEDS: Ketorolac Tromethamine 30 MG/ML VIAL IVP SCH ×3 (17:20→23:41)
[2019-03-17] MEDS: Pantoprazole 40 MG VIAL IVP SCH (17:20)
[2019-03-17] MEDS: Metoprolol Tartrate 5 MG/5 ML VIAL IVP SCH ×3 (17:21→23:43)
--- NOTE | 2019-03-17 21:44 | OP ---
DATE OF PROCEDURE: 03/17/2019 PROCEDURES PERFORMED: 12 x 7 mm Hemashield aortobifemoral bypass with reimplantation of inferior mesenteric artery, right common femoral artery endarterectomy and right profundoplasty, right internal jugular central line placement with ultrasonographic guidance, placement of On Q local anesthetic infusion catheters X 2 PREOPERATIVE DIAGNOSIS: Aortoiliac peripheral vascular disease. POSTOPERATIVE DIAGNOSIS: Aortoiliac peripheral vascular disease. UNION LABORER: London Burns MD ANESTHESIA: General endotracheal anesthesia. INDICATIONS: The patient is a 63-year-old woman with known aortoiliac disease, who has undergone multiple percutaneous interventions and a previous left iliofemoral endarterectomy and profundoplasty. She had good relief of rest pain with her left-sided endarterectomy although at the time, she still claudicated. She has since developed claudication at 1 to 2 blocks and nighttime numbness in her foot on the right side. CT angiography demonstrates interval redevelopment of long segment stenoses of the right external iliac starting at its origin. She has not had adequate relief of her symptoms with smoking cessation and walking. She appears to have adequate cardiopulmonary reserve for anatomic revascularization. She is now taken to the operating room for aortobifemoral bypass. NARRATIVE REPORT: After informed consent was obtained, the patient was taken to the operating room, placed in supine position on the operating table. After the induction of general anesthesia, the patient's right upper chest was prepped and draped in sterile fashion. A triple-lumen central line kit was used to cannulate the right subclavian vein, although the vein was readily cannulated and a wire passed and the tract dilated. The wire which was a replacement for the one in the kit that had been contaminated, proved to be too short and venous cannulation was lost during the attempt at passing the wire through the catheter. Repeated attempts at cannulating the vein were unsuccessful and the artery was cannulated with a needle three times in total at which point, further attempts at subclavian vein placement were abandoned. Pressure was held and then the patient's neck was extended and rotated towards the left and prepped and draped in sterile fashion. A sterile ultrasound interrogation of the neck identified the ballotable internal jugular vein just lateral to the palpable carotid. It was first cannulated with a 22-gauge finer needle and then with the needle from the triple lumen kit under ultrasonographic visualization. A guidewire was placed and then by the Seldinger technique, the tract was dilated and a central line placed over that wire. The wire was removed. All 3 ports easily aspirated and flushed. The line was secured and dressed. The patient's torso groins and lower extremities were then prepped and draped in sterile fashion. An oblique incision was made parallel to and about a fingerbreadth below the left groin crease with a scalpel and electrocautery. The superficial femoral artery was identified and then was followed proximally up onto the pericardial patch that had been used to close the arteriotomy for the previous iliofemoral endarterectomy and profundoplasty. The femoral bifurcation was identified and the patched iliofemoral segment was isolated sufficiently to allow for proximal and distal control with vascular clamps. Sharp and blunt dissection were used to develop distal aspect of the retroperitoneal tunnel just anterior to the patched iliac, that wound was then packed off. A mirror image incision was made in the right groin and the iliofemoral was exposed and isolated with isolation taken down a few centimeters onto both the SFA and the profunda. A retroperitoneal tunnel was initiated there as well and that wound packed. Vertical midline celiotomy incision was then made from roughly xiphoid to pubis. The abdominal cavity was entered superiorly and a Mission retractor was put into place. A brief exploration of the abdomen was made. There were no palpable abnormalities of stomach appreciated when verifying nasogastric tube positioning. The liver was grossly normal. The gallbladder was distended, but was Levi egg blue. There were no obvious abnormalities with the bowel. Transverse colon was retracted superiorly. The ligament of Treitz was lysed. A few adhesions of the small bowel to the tissues overlying the aorta were lysed. The small bowel was retracted to the right and a Bookwalter ring was positioned and self-retaining retractors put into place. The retroperitoneal tissues overlying the aorta were incised with scissors and the electrocautery from the level of the left renal vein to just beyond the aortic bifurcation. The retroperitoneal tunnels were completed and umbilical tapes were passed through them. The inferior mesenteric artery was noted to be just proximal to hard eccentric plaque in the anterior surface of the aorta near the bifurcation. Most of the remaining infrarenal aorta was relatively soft. The patient was heparinized and a 12 x 7 Hemashield aortobifemoral graft was brought to the field and the aortic portion of the graft trimmed to length. After adequate circulation time of heparin, the infrarenal aorta was ligated with a TA 30 stapling device just proximal to the inferior mesenteric artery. A Satinsky clamp was used to occlude the aorta just below the level of the left renal vein and about 2 cm below that , the aorta was transected. There was no backbleeding coming from any uncontrolled lumbars proximally or distally. An end to end anastomosis between the aortic portion of the bifurcated graft, and the distal and the proximal stump of the aorta was constructed with running 3-0 Prolene suture. The graft was flushed and the suture line inspected for hemostasis. A [id number] Prolene suture was used to control one bleeding point in the left anterior laterally. A pledgeted suture was used to control diffuse ooze along one point of the posterior suture line. The limbs of the graft were passed down to the respective groins via the retroperitoneal tunnels. The inferior mesenteric artery was amputated from its origin on the aorta and that point was controlled with a pursestring Prolene suture. There was fairly brisk backbleeding from the inferior mesenteric. An elliptical graftotomy was made left of center anteriorly on the aortic portion of the graft in line with the inferior mesenteric, which was spatulated and then anastomosed to that graftotomy with running 5-0 Prolene. The proximal graft clamp was released as was the bulldog on the mammary, and the limbs of the graft were controlled with separate vascular clamps through the abdominal wound. Attention was first turned to the right groin, proximal and distal control was established on the common femoral bifurcation. A longitudinal arteriotomy was made in the profunda and extended up onto the common femoral. There was an occlusive plug of soft blood-stained plaque centrally, as well as irregularly contoured plaque at the periphery of the distal common femoral. This was endarterectomized in one relatively sharp step-off at the origin of the SFA was tacked down with a mattress suture of fine Prolene. The right limb of the graft was then trimmed to length with a generous bevel and anastomosed to that arteriotomy end-to-side with running 5-0 Prolene suture at the heel on the common femoral and the toe on the profunda. The blackfeet vessels were back bled and the graft was flushed. The suture line was secured. Antegrade flow was allowed into the limb of the graft with the iliac clamp first being released in the profunda, then the SFA. Suture line was inspected for hemostasis and the wound packed off. Proximal distal control was then established on the left femoral system. An elliptical incision was made in the pericardium patch of the endarterectomized femoral artery. The left limb of the graft was trimmed to length with a bevel and anastomosed there end-to-side. The blackfeet vasculature in the graft was blushed and antegrade flow allowed into the leg in a similar fashion. Protamine was administered when hemostasis was adequate. The retroperitoneal tissues were reapproximated with running Vicryl. The midline abdominal fascia was closed with running double-stranded #1 PDS. On-Q PainBuster catheters were placed just superficial to the fascia and brought out through separate incisions using tunneling catheters. The subcutaneous tissue was irrigated and reapproximated in 2 layers of Vicryl and the skin closed with a running 3-0 Vicryl subcuticular suture, which was then reinforced with a running nylon skin suture. The groin incisions were irrigated and inspected for hemostasis. They were closed in deep and superficial layers of 2- 0 Vicryl for the subcutaneous tissue and then 4-0 Vicryl subcuticular suture in running nylon for the skin. 5 mL of 0.2% ropivacaine was bolused in the each of the two On-Q pump catheters. The wounds were dressed. Chest x-ray done in the operating room showed good positioning of the central line with no apparent pneumothorax. The patient was awakened and extubated in the operating room and taken to the recovery area in stable condition. Job ID: [id number] [facility]
[2019-03-18] MEDS: Acetaminophen 1,000 MG in Premix Bag 1 BAG IVPB SCH ×4 (03:21→21:41)
[2019-03-18 03:41] LABS: #Lymphocytes 1.1 thou/uL (1.20-3.40); #Monocytes 0.6 thou/uL (0.11-0.59); #Neutrophils 17.6 thou/uL (1.40-6.50); %Basophils 0.1 % (0.0-1.0); %Lymphocytes 5.7 % (21.0-51.0); %Monocytes 3.3 % (0.0-10.0); %Neutrophils 90.9 % (42.0-75.0); Hemoglobin 10.4 g/dL (12.0-16.0); Mean Corpuscular Hemoglobin 28.8 pg (27.0-31.0); Mean Corpuscular Volume 89.9 fL (78.0-98.0); Mean Platelet Volume 8.1 fL (7.4-10.4); Platelet Count 199 thou/uL (130-400); RBC Distribution Width 14.3 % (11.5-14.5); Red Blood Cell (RBC) Count 3.61 mill/uL (4.20-5.40); White Blood Cell (WBC) Count 19.4 thou/uL (4.8-10.8)
[2019-03-18 03:58] LABS: Anion Gap 11 mmol/L (10-20); BUN (Urea Nitrogen) 9 mg/dL (9.8-20.1); Calc. Creatinine Clearance 99 mL/min (70-130); Calcium 7.7 mg/dL (7.8-10.44); Carbon Dioxide 22 mmol/L (23-31); Chloride 111 mmol/L (98-107); Estimated GFR-MDRD Greater than 90; Glucose 125 mg/dL (80-115); Potassium 3.6 mmol/L (3.5-5.1); Sodium 140 mmol/L (136-145)
[2019-03-18] MEDS: Sodium Chloride 0.9% 1,000 ML IV SCH ×4 (05:48→21:40)
[2019-03-18] MEDS: Metoprolol Tartrate 5 MG/5 ML VIAL IVP SCH ×3 (05:49→18:00)
[2019-03-18] MEDS: Ketorolac Tromethamine 30 MG/ML VIAL IVP SCH ×3 (05:49→18:00)
[2019-03-18] MEDS: Ondansetron PF 4 MG/2 ML Vial IVP PRN ×2 (06:17→14:19)
--- NOTE | 2019-03-18 09:07 | RAD ---
PORTABLE CHEST: HISTORY: Respiratory distress. COMPARISON: 03/17/2019 FINDINGS: NG tube is below the hemidiaphragm. The patient is rotated on this study. Heart size appears enlarged . Increased retrocardiac density is probably largely related to the hiatal hernia. IMPRESSION: Surgically stable examination other than removal of the endotracheal tube. Retrocardiac density persi sts. POS: TPC
[2019-03-18] MEDS: Pantoprazole 40 MG VIAL IVP SCH (09:25)
[2019-03-19] MEDS: Acetaminophen 1,000 MG in Premix Bag 1 BAG IVPB SCH ×4 (01:07→15:53)
[2019-03-19] MEDS: Ketorolac Tromethamine 30 MG/ML VIAL IVP SCH ×5 (01:10→23:56)
[2019-03-19] MEDS: Metoprolol Tartrate 5 MG/5 ML VIAL IVP SCH ×5 (01:11→23:56)
[2019-03-19 04:39] LABS: #Lymphocytes 1.6 thou/uL (1.20-3.40); #Monocytes 0.7 thou/uL (0.11-0.59); #Neutrophils 11.1 thou/uL (1.40-6.50); %Basophils 0.2 % (0.0-1.0); %Eosinophils 0.2 % (0.0-10.0); %Lymphocytes 11.6 % (21.0-51.0); %Neutrophils 82.9 % (42.0-75.0); Hemoglobin 9.3 g/dL (12.0-16.0); Mean Corpuscular HGB CONC 31.5 g/dL (32.0-36.0); Platelet Count 193 thou/uL (130-400); RBC Distribution Width 14.2 % (11.5-14.5); Red Blood Cell (RBC) Count 3.21 mill/uL (4.20-5.40); White Blood Cell (WBC) Count 13.4 thou/uL (4.8-10.8)
[2019-03-19 04:44] LABS: Anion Gap 8 mmol/L (10-20); BUN (Urea Nitrogen) 7 mg/dL (9.8-20.1); Calc. Creatinine Clearance 93 mL/min (70-130); Calcium 8.2 mg/dL (7.8-10.44); Carbon Dioxide 24 mmol/L (23-31); Chloride 113 mmol/L (98-107); Estimated GFR-MDRD Greater than 90; Glucose 84 mg/dL (80-115); Sodium 141 mmol/L (136-145)
[2019-03-19] MEDS: Sodium Chloride 0.9% 1,000 ML IV SCH (05:12)
[2019-03-19] MEDS: Lactated Ringer's 1,000 ML IV SCH ×2 (08:45→18:24)
[2019-03-19] MEDS: Pantoprazole 40 MG VIAL IVP SCH (08:46)
[2019-03-19] MEDS: Morphine Sulfate 100 MG in Dextrose 5% in Water 98 ML IV SCH (09:45)
[2019-03-20] MEDS: Metoprolol Tartrate 5 MG/5 ML VIAL IVP SCH ×4 (05:10→23:04)
[2019-03-20] MEDS: Lactated Ringer's 1,000 ML IV SCH ×3 (05:10→23:04)
[2019-03-20] MEDS: Ketorolac Tromethamine 30 MG/ML VIAL IVP SCH (05:10)
--- NOTE | 2019-03-20 08:55 | RAD ---
CHEST 1 VIEW: Date: 03/20/19 HISTORY: Shortness of breath. FINDINGS: Right central line and NG tube in place. The NG tube tip is at the level of the hemidiaphragm, but th ere is the appearance of a large hiatal hernia, so it is probably well within the stomach. Increased vascular markings bilaterally, possibly mild congestion. No confluent pneumonia, overt edema, or pleu ral effusion. IMPRESSION: Moderate size hiatal hernia. No significant acute process. POS: TPC
[2019-03-20] MEDS: Pantoprazole 40 MG VIAL IVP SCH (09:06)
[2019-03-21] MEDS: Metoprolol Tartrate 5 MG/5 ML VIAL IVP SCH ×4 (05:51→23:59)
[2019-03-21] MEDS: Pantoprazole 40 MG VIAL IVP SCH (08:59)
[2019-03-21] MEDS: Lactated Ringer's 1,000 ML IV SCH ×2 (08:59→18:26)
[2019-03-21 16:30] LABS: Anion Gap 17 mmol/L (10-20); BUN (Urea Nitrogen) 6 mg/dL (9.8-20.1); Calc. Creatinine Clearance 103 mL/min (70-130); Calcium 8.6 mg/dL (7.8-10.44); Carbon Dioxide 21 mmol/L (23-31); Chloride 102 mmol/L (98-107); Estimated GFR-MDRD Greater than 90; Glucose 70 mg/dL (80-115); Potassium 3.4 mmol/L (3.5-5.1); Sodium 137 mmol/L (136-145)
[2019-03-21 17:50] LABS: Bacteria/HPF None Seen HPF (None Seen); Bilirubin 1+ (Negative); Blood, Urine 1+ (Negative); Clarity Clear (Clear); Glucose, Urine (Dipstick) Normal (Negative); Leukocyte 25 Leu/uL (Negative); Nitrite Negative (Negative); Protein, Urine (Dipstick) 100 mg/dL (Neg-Trace); RBC/HPF 0-3 HPF (0-3); Urobilinogen Normal mg/dL (Less than 2)
[2019-03-21 17:52] LABS: Urine Culture Reflex No No
[2019-03-21] MEDS: Morphine Sulfate 100 MG in Dextrose 5% in Water 98 ML IV SCH (19:25)
[2019-03-22 04:55] LABS: Magnesium 1.6 mg/dL (1.6-2.6); Phosphorus 2.2 mg/dL (2.3-4.7)
[2019-03-22] MEDS: Metoprolol Tartrate 5 MG/5 ML VIAL IVP SCH (05:34)
[2019-03-22] MEDS: Lactated Ringer's 1,000 ML IV SCH (05:34)
[2019-03-22 06:19] LABS: Band 10 % (5-11); Hemoglobin 9.9 g/dL (12.0-16.0); Lymphocytes 16 % (21-51); MDiff Complete? YES; Mean Corpuscular HGB CONC 32.2 g/dL (32.0-36.0); Mean Corpuscular Hemoglobin 28.8 pg (27.0-31.0); Mean Corpuscular Volume 89.3 fL (78.0-98.0); Mean Platelet Volume 9.4 fL (7.4-10.4); Monocytes 8 % (0-10); Neutrophil 65 % (42-75); Nucleated RBC 1 % (0); Platelet Count 244 thou/uL (130-400); Platelet Morphology Comment Appears Adequate; Polychromasia SLIGHT = 2-3 cells (100X) (0-2/hpf); Reactive Lymphocytes 1 % (0-10); Red Blood Cell (RBC) Count 3.46 mill/uL (4.20-5.40); Target Cells SLIGHT = 2-5 cells (100X) (0-1/hpf); White Blood Cell (WBC) Count 10.1 thou/uL (4.8-10.8)
--- NOTE | 2019-03-22 08:35 | RAD ---
EXAM: XR Chest 1 View Portable PROVIDED CLINICAL HISTORY: Shortness of breath COMPARISON: 03/20/2019 FINDINGS: Cardiac and mediastinal silhouettes is unchanged in appearance. Vascular calcification involves the a ortic arch. Bibasilar subsegmental atelectatic changes. Enteric catheter is again noted, the tip of which overlies the medial left upper quadrant, probably within hiatal hernia. There is no pleural flu id or pneumothorax apparent. Right IJ central line is again noted in similar position. IMPRESSION: No apparent significant change.
[2019-03-22] MEDS: Polyethylene Glycol 3350 17 GM Packet PO SCH (09:22)
[2019-03-22] MEDS: Pantoprazole 40 MG VIAL IVP SCH (09:22)
[2019-03-22] MEDS: Carvedilol 3.125 MG TAB PO SCH ×2 (09:22→17:56)
[2019-03-23] MEDS: Pantoprazole 40 MG VIAL IVP SCH (08:58)
[2019-03-23] MEDS: Carvedilol 3.125 MG TAB PO SCH ×2 (08:58→17:15)
[2019-03-23] MEDS: Polyethylene Glycol 3350 17 GM Packet PO SCH (08:58)
[2019-03-23] MEDS: HYDROcodone/Acetaminophen 5/325 mg Tablet PO PRN ×3 (10:48→20:02)
[2019-03-23] MEDS: Atorvastatin Calcium 40 MG TAB PO SCH (20:04)
[2019-03-24] MEDS: HYDROcodone/Acetaminophen 5/325 mg Tablet PO PRN ×3 (03:27→19:13)
[2019-03-24] MEDS: Carvedilol 3.125 MG TAB PO SCH ×2 (08:54→19:09)
[2019-03-24] MEDS: Polyethylene Glycol 3350 17 GM Packet PO SCH (08:54)
[2019-03-24] MEDS: Aspirin 325 MG TAB PO SCH (08:54)
[2019-03-24] MEDS: Atorvastatin Calcium 40 MG TAB PO SCH (21:05)
[2019-03-25] MEDS: HYDROcodone/Acetaminophen 5/325 mg Tablet PO PRN ×3 (02:50→19:55)
[2019-03-25] MEDS: Carvedilol 3.125 MG TAB PO SCH ×2 (07:56→16:15)
[2019-03-25] MEDS: Aspirin 325 MG TAB PO SCH (07:56)
[2019-03-25] MEDS: Polyethylene Glycol 3350 17 GM Packet PO SCH (07:57)
[2019-03-25] MEDS ORDERED: Sodium Chloride 0.9% 500 ML IV SCH ×2 (11:45→17:30)
[2019-03-25] MEDS: Atorvastatin Calcium 40 MG TAB PO SCH (19:55)
[2019-03-26] MEDS: HYDROcodone/Acetaminophen 5/325 mg Tablet PO PRN ×4 (04:36→19:55)
[2019-03-26] MEDS: Polyethylene Glycol 3350 17 GM Packet PO SCH (09:07)
[2019-03-26] MEDS: Aspirin 325 MG TAB PO SCH (09:07)
--- NOTE | 2019-03-26 10:10 | RAD ---
PORTABLE CHEST: Date: 03/26/19 HISTORY: Productive cough, elevated temperature. COMPARISON: 03/22/19 exam. FINDINGS: Heart size is enlarged. There are atherosclerotic changes of the aorta. There are bibasilar appearing infiltrative lung changes. IMPRESSION: Bibasilar lung changes most suggestive of bibasilar infiltrates. POS: OFF
[2019-03-26] MEDS: Atorvastatin Calcium 40 MG TAB PO SCH (19:55)
[2019-03-27] MEDS: HYDROcodone/Acetaminophen 5/325 mg Tablet PO PRN ×5 (04:36→22:10)
[2019-03-27 04:57] LABS: #Eosinphils 0.1 thou/uL (0.0-0.7); #Lymphocytes 1.2 thou/uL (1.20-3.40); #Monocytes 0.8 thou/uL (0.11-0.59); #Neutrophils 10.4 thou/uL (1.40-6.50); %Basophils 0.1 % (0.0-1.0); %Eosinophils 0.4 % (0.0-10.0); %Lymphocytes 9.7 % (21.0-51.0); %Monocytes 6.2 % (0.0-10.0); %Neutrophils 83.6 % (42.0-75.0); Hemoglobin 7.8 g/dL (12.0-16.0); Mean Corpuscular HGB CONC 30.9 g/dL (32.0-36.0); Mean Corpuscular Hemoglobin 27.8 pg (27.0-31.0); Mean Corpuscular Volume 90.1 fL (78.0-98.0); Mean Platelet Volume 8.3 fL (7.4-10.4); Platelet Count 396 thou/uL (130-400); RBC Distribution Width 14.6 % (11.5-14.5); Red Blood Cell (RBC) Count 2.81 mill/uL (4.20-5.40); White Blood Cell (WBC) Count 12.5 thou/uL (4.8-10.8)
[2019-03-27] MEDS: Aspirin 325 MG TAB PO SCH (08:53)
[2019-03-27] MEDS: Polyethylene Glycol 3350 17 GM Packet PO SCH (08:53)
--- NOTE | 2019-03-27 18:26 | CON ---
DATE OF CONSULTATION: HISTORY OF PRESENT ILLNESS: Fina Cifuentes is a 63-year-old female, who has undergone aortobifem bypass surgery. She has bilateral lower lobe infiltrates now on an x-ray and had a temperature spike to 100.7 on the 25th. She is currently on Levaquin, and is afebrile. She denies shortness of breath or cough. Heart rates in the 80s, respiratory rates in the teens, oximetry is 96% on 2 L, and blood pressure 116/57. PAST MEDICAL HISTORY: Remarkable for: 1. Peripheral vascular disease. 2. Hypertension. 3. Lipid disorder. 4. Hepatitis. 5. Heavy alcohol use in the past, none since 2011. 6. History of circumflex stenting. 7. History of reflux disease. MEDICATIONS: Prior to admission, she was on: 1. Norvasc. 2. Coreg. 3. Aspirin. 4. Plavix. 5. Lipitor. 6. Pletal. 7. Protonix. 8. Mpne-skt-bopggvw supplements. ALLERGIES: SHE REPORTS AN ALLERGY TO PENICILLIN. SOCIAL HISTORY: She is a pack to pack and half a day smoker, quit a year and half ago. She was a heavy drinker, quit three years ago. FAMILY HISTORY: Positive for high blood pressure and vascular disease. REVIEW OF SYSTEMS: Ten-points otherwise negative. PHYSICAL EXAMINATION: GENERAL: Pleasant, in no distress, very polite. VITAL SIGNS: She is afebrile, heart rate 85, respiratory rate 16, oximetry is 96% on 2 L, and blood pressure 116/57. HEENT: Pupils are equal. Sclerae are anicteric. She has very poor dentition. NECK: Supple. LUNGS: Remarkable for crackles in both lung bases. HEART: Regular rhythm. S1 and S2 normal. ABDOMEN: Soft and nontender. EXTREMITIES: Without clubbing, cyanosis, or edema. LABORATORY DATA: White count 12.5, hemoglobin 7.8, and platelets 396. Sodium 137, potassium 3.4, chloride 102, bicarb 21, BUN 6, and creatinine 0.63. Chest x-ray shows lower lobe infiltrates. IMPRESSION AND PLAN: Pneumonia. She appears to be clinically improving on Levaquin, so I do not think her antibiotics need to be broadened at this time. I will be happy to follow with the other physicians caring for her. 50 minute consult with 50% of time on unit coordinating care Job ID: [id number] [facility]
[2019-03-27] MEDS: Atorvastatin Calcium 40 MG TAB PO SCH (20:12)
[2019-03-28] MEDS: HYDROcodone/Acetaminophen 5/325 mg Tablet PO PRN ×6 (02:25→22:57)
[2019-03-28] MEDS: Aspirin 325 MG TAB PO SCH (08:45)
[2019-03-28] MEDS: Polyethylene Glycol 3350 17 GM Packet PO SCH (08:45)
--- NOTE | 2019-03-28 13:01 | PRG ---
DATE OF SERVICE: 03/28/2019 SUBJECTIVE: She reports that she is feeling better today. Had no acute complaints. OBJECTIVE: VITAL SIGNS: Temperature 98.2, pulse 85, respirations 20, O2 saturation 95% on 2 L, and blood pressure 107/68. HEENT: Unremarkable. NECK: No adenopathy or JVD. CHEST: Diminished breath sounds in both bases. CARDIAC: S1 and S2. Regular. ABDOMEN: Soft. EXTREMITIES: No edema. LABORATORY DATA: Chest x-ray from yesterday and did have a right lower lobe infiltrate. ASSESSMENT: 1. Pneumonia. 2. Status post abdominal aortic aneurysm repair. PLAN: The patient is continuing on antibiotics. Ambulate as tolerated. Hopefully, home soon. Job ID: [id number]
[2019-03-28] MEDS: Atorvastatin Calcium 40 MG TAB PO SCH (20:47)
[2019-03-29] MEDS: HYDROcodone/Acetaminophen 5/325 mg Tablet PO PRN ×5 (06:13→23:16)
[2019-03-29] MEDS: Polyethylene Glycol 3350 17 GM Packet PO SCH (09:43)
[2019-03-29] MEDS: Aspirin 325 MG TAB PO SCH (09:43)
--- NOTE | 2019-03-29 12:07 | PRG ---
DATE OF SERVICE: 03/29/2019 SUBJECTIVE: The patient is doing well and has no complaints. OBJECTIVE: VITAL SIGNS: Temperature 98.4, pulse 87, respirations 14, O2 saturation 94% on 2 L, and blood pressure 108/60. HEENT: Unremarkable. NECK: No adenopathy or JVD. CHEST: Fairly clear without wheezing or rhonchi. CARDIAC: S1 and S2. Regular. ABDOMEN: Soft. She has a midline wound VAC in place. EXTREMITIES: No edema. ASSESSMENT: 1. Pneumonia. 2. Status post abdominal surgery. PLAN: She can stop the Levaquin after 7 days of therapy. I will check her again on Sunday. Job ID: [id number]
[2019-03-29] MEDS: Atorvastatin Calcium 40 MG TAB PO SCH (20:23)
[2019-03-30] MEDS: HYDROcodone/Acetaminophen 5/325 mg Tablet PO PRN ×3 (04:48→18:00)
[2019-03-30] MEDS: Aspirin 325 MG TAB PO SCH (08:33)
[2019-03-30] MEDS: Polyethylene Glycol 3350 17 GM Packet PO SCH (08:33)
[2019-03-30] MEDS: Atorvastatin Calcium 40 MG TAB PO SCH (20:37)
[2019-03-31] MEDS: HYDROcodone/Acetaminophen 5/325 mg Tablet PO PRN ×6 (00:05→21:02)
[2019-03-31] MEDS: Polyethylene Glycol 3350 17 GM Packet PO SCH (08:33)
[2019-03-31] MEDS: Aspirin 325 MG TAB PO SCH (08:33)
--- NOTE | 2019-03-31 09:04 | PRG ---
DATE OF SERVICE: 03/31/2019 SUBJECTIVE: The patient feels well, has no complaints, better breathing. OBJECTIVE: VITAL SIGNS: Temperature 98.2, pulse 79, respirations 20, O2 saturation 96% on 2L, and blood pressure 110/60. HEENT: Unremarkable. NECK: No adenopathy or JVD. CHEST: Clear to auscultation anteriorly. CARDIAC: S1 and S2. Regular. ABDOMEN: Midline wound VAC noted. EXTREMITIES: No edema. ASSESSMENT: 1. Stable from pneumonia. 2. Status post abdominal surgery. PLAN: Antibiotics can be stopped after tomorrow from a Pulmonary standpoint. I am not sure if they are needed for the wound or not. Job ID: [id number]
[2019-03-31] MEDS: Atorvastatin Calcium 40 MG TAB PO SCH (21:02)
[2019-04-01] MEDS: HYDROcodone/Acetaminophen 5/325 mg Tablet PO PRN ×6 (03:02→22:25)
[2019-04-01 07:31] LABS: Hemoglobin 7.4 g/dL (12.0-16.0); Mean Corpuscular HGB CONC 30.5 g/dL (32.0-36.0); Mean Corpuscular Hemoglobin 27.2 pg (27.0-31.0); Mean Corpuscular Volume 89.4 fL (78.0-98.0); Mean Platelet Volume 7.5 fL (7.4-10.4); Platelet Count 738 thou/uL (130-400); RBC Distribution Width 15.4 % (11.5-14.5); Red Blood Cell (RBC) Count 2.73 mill/uL (4.20-5.40); White Blood Cell (WBC) Count 22.2 thou/uL (4.8-10.8)
[2019-04-01 07:36] LABS: Anion Gap 11 mmol/L (10-20); BUN (Urea Nitrogen) 12 mg/dL (9.8-20.1); Calc. Creatinine Clearance 100 mL/min (70-130); Calcium 8.1 mg/dL (7.8-10.44); Carbon Dioxide 28 mmol/L (23-31); Chloride 101 mmol/L (98-107); Estimated GFR-MDRD Greater than 90; Glucose 105 mg/dL (80-115); Potassium 3.7 mmol/L (3.5-5.1); Sodium 136 mmol/L (136-145)
[2019-04-01 07:57] LABS: Band 10 % (5-11); Hypochromia SLIGHT = 6-15 cells (100X) (0-5/hpf); Lymphocytes 7 % (21-51); MDiff Complete? YES; Monocytes 9 % (0-10); Neutrophil 73 % (42-75); Platelet Morphology Comment Appears Increased; Polychromasia SLIGHT = 2-3 cells (100X) (0-2/hpf); Target Cells SLIGHT = 2-5 cells (100X) (0-1/hpf)
[2019-04-01] MEDS: Polyethylene Glycol 3350 17 GM Packet PO SCH (09:38)
[2019-04-01] MEDS: Aspirin Chewable 81 MG TAB PO SCH (09:38)
--- NOTE | 2019-04-01 14:23 | PRG ---
DATE OF SERVICE: 04/01/2019 She is now 15 days status post aortobifemoral bypass and about 5 to 6 days status post opening of her infected abdominal wound. Cultures revealed gram-positive and gram-negative organisms with normal skin franki and no further reports have been forthcoming. She has elevated white count today of 22,000 with a stable hemoglobin of 7.4 g. She remains afebrile with a heart rate of 80 and a blood pressure of 120. Her wound VAC was changed today and has not been changed for the past 4 to 5 days and she did have a large amount of purulent fluid in the lower left portion of the wound. It appears that her omentum is forming the base of the wound, which was the report that I got from Dr. Hogan this weekend. The skin edges are generally okay, although there was some necrotic fat on the left lower abdominal wall portion. At this time, it appears that the patient will need further surgical intervention to attempt to reapproximate the fascia or perhaps putting some Vicryl mesh as a temporizing measure. Due to the amount of purulent secretions at this time, I do not think that we will proceed to the operating room, however, things appear opening machine cleaner when the wound VAC is changed in 2 more days, this may be a consideration. Job ID: [id number]
[2019-04-01] MEDS: Atorvastatin Calcium 40 MG TAB PO SCH (20:41)
[2019-04-01] MEDS: Aztreonam 2 GM in Sodium Chloride 0.9% 100 ML IVPB SCH (23:39)
[2019-04-02] MEDS: Aztreonam 2 GM in Sodium Chloride 0.9% 100 ML IVPB SCH ×3 (01:26→12:30)
[2019-04-02] MEDS: HYDROcodone/Acetaminophen 5/325 mg Tablet PO PRN ×4 (05:40→21:37)
[2019-04-02 06:30] LABS: Hemoglobin 8.6 g/dL (12.0-16.0); Lymphocytes 9 % (21-51); MDiff Complete? YES; Mean Corpuscular HGB CONC 30.3 g/dL (32.0-36.0); Mean Corpuscular Hemoglobin 27.2 pg (27.0-31.0); Mean Corpuscular Volume 89.6 fL (78.0-98.0); Mean Platelet Volume 7.4 fL (7.4-10.4); Metamyelocyte 1 % (0-0); Monocytes 6 % (0-10); Neutrophil 84 % (42-75); Nucleated RBC 1 % (0); Platelet Count 716 thou/uL (130-400); Platelet Morphology Comment Appears Increased; RBC Distribution Width 15.1 % (11.5-14.5); Red Blood Cell (RBC) Count 3.16 mill/uL (4.20-5.40); White Blood Cell (WBC) Count 23.4 thou/uL (4.8-10.8)
[2019-04-02] MEDS: Aspirin Chewable 81 MG TAB PO SCH (08:44)
[2019-04-02] MEDS: Polyethylene Glycol 3350 17 GM Packet PO SCH (08:44)
[2019-04-02] MEDS: Clindamycin/D5W 900 MG in Premix Bag 1 BAG IVPB SCH ×2 (08:44→17:12)
[2019-04-02] MEDS ORDERED: Vancomycin HCl 1.5 GM in Sodium Chloride 0.9% 250 ML 300 ML IVPB SCH (09:00)
[2019-04-02] MEDS ORDERED: Furosemide 40 MG/4 ML VIAL SLOW IVP SCH (12:00)
[2019-04-02] MEDS: Atorvastatin Calcium 40 MG TAB PO SCH (21:04)
[2019-04-02] MEDS: Vancomycin 1.5 GRAM/300 ML BAG 1.5 GM in Premix Bag 1 BAG IVPB SCH (21:04)
[2019-04-03] MEDS: Clindamycin/D5W 900 MG in Premix Bag 1 BAG IVPB SCH ×4 (00:41→23:48)
[2019-04-03] MEDS: Aztreonam 2 GM in Sodium Chloride 0.9% 100 ML IVPB SCH ×2 (00:42→15:01)
[2019-04-03] MEDS: HYDROcodone/Acetaminophen 5/325 mg Tablet PO PRN (02:35)
[2019-04-03] MEDS ORDERED: Fentanyl 250 MCG/5 ML VIAL ONE (06:40)
[2019-04-03] MEDS ORDERED: Midazolam HCl 2 mg/2 ml Vial ONE (06:40)
[2019-04-03] MEDS ORDERED: Neomycin-Polymyxin 1 ML AMP ONE ×2 (06:52→08:06)
[2019-04-03] MEDS ORDERED: Clindamycin/D5W 900 mg/50 ml Premix Bag ONE (06:56)
[2019-04-03] MEDS ORDERED: Ondansetron HCl/PF 4 MG/2 ML Vial IVP PRN ×2 (08:57→08:59)
[2019-04-03] MEDS ORDERED: diphenhydrAMINE 50 MG/ML VIAL IVP PRN (08:57)
[2019-04-03] MEDS ORDERED: Promethazine HCl 25 MG/ML VIAL IM PRN ×3 (08:57→08:59)
[2019-04-03] MEDS ORDERED: diphenhydrAMINE 50 MG/ML VIAL IM PRN (08:57)
[2019-04-03] MEDS ORDERED: Naloxone HCl 0.4 mg/ml Vial IV PRN (08:57)
[2019-04-03] MEDS ORDERED: Promethazine HCl 25 MG/ML VIAL SLOW IVP PRN ×2 (08:57→08:59)
[2019-04-03] MEDS ORDERED: Communication Order-Pharmacy FS PRN (09:00)
--- NOTE | 2019-04-03 09:08 | OP ---
DATE OF PROCEDURE: 04/03/2019 PREOPERATIVE DIAGNOSIS: Infected abdominal wound, status post aortobifemoral bypass. POSTOPERATIVE DIAGNOSIS: Infected abdominal wound, status post aortobifemoral bypass. PROCEDURE PERFORMED: Excisional debridement of the abdominal wall, subcutaneous tissue, and fascia. DATA ENTRY SPECIALIST SURGEON: Jorden Killian MD ANESTHESIA: General endotracheal. ESTIMATED BLOOD LOSS: 100. VAC was replaced at the end of the procedure. DESCRIPTION OF PROCEDURE: After consent was obtained, the patient was brought to the operating room and placed in supine position on the operating table. Appropriate central line and monitors were placed and general endotracheal anesthesia was induced. VAC was removed and cultures were taken. The abdomen was then prepped and draped in usual sterile fashion. The abdominal closure suture was completely torn through the left-sided fascia. This was removed. The skin, subcutaneous tissue, and some abdominal wall fascia was debrided back to more healthy-appearing fat. The subcutaneous fat was then copiously irrigated with 3 L of laden Pulsavac solution. The wound was then explored again and hemostasis was ensured. There were couple of areas of extra debridement that were performed of the anterior abdominal wall on the left. The right-sided abdominal wall was fixed and there were no pockets. The omentum had sealed the intraabdominal contents to the fascial edge and this was not redeveloped as I did not feel we could safely close her abdominal wall. Three more liters of laden Pulsavac solution was then used for further irrigation. Wound care team came and replaced the wound VAC. The patient was awakened, extubated, and transferred to the intensive care unit in stable condition. Needle, sponge, and instrument counts were all reported as correct at the end of the procedure. Job ID: [id number]
[2019-04-03] MEDS ORDERED: Fentanyl 100 MCG/2 ML VIAL ONE ×2 (09:20→09:58)
[2019-04-03] MEDS ORDERED: Glycopyrrolate 0.2 MG/ML 5 ML SYRINGE ONE (10:03)
[2019-04-03] MEDS ORDERED: Metoclopramide HCl 10 MG/2 ML VIAL ONE (10:03)
[2019-04-03] MEDS ORDERED: PROPOFOL 200 MG/20 ML VIAL ONE (10:03)
[2019-04-03] MEDS ORDERED: Lidocaine 1% PF 5 ML VIAL ONE (10:03)
[2019-04-03] MEDS ORDERED: Ondansetron PF 4 MG/2 ML Vial ONE (10:03)
[2019-04-03] MEDS ORDERED: Rocuronium Bromide 10 MG/ML (10ML VIAL) ONE (10:03)
[2019-04-03] MEDS ORDERED: Morphine 2 MG/ML SYRINGE ONE ×2 (10:16→10:32)
[2019-04-03] MEDS: Aspirin Chewable 81 MG TAB PO SCH (10:32)
[2019-04-03] MEDS: Polyethylene Glycol 3350 17 GM Packet PO SCH (10:32)
[2019-04-03] MEDS: Vancomycin 1.5 GRAM/300 ML BAG 1.5 GM in Premix Bag 1 BAG IVPB SCH ×2 (12:01→21:10)
[2019-04-03 15:17] LABS: Hemoglobin 9.9 g/dL (12.0-16.0); Mean Corpuscular HGB CONC 32.2 g/dL (32.0-36.0); Mean Corpuscular Hemoglobin 28.6 pg (27.0-31.0); Mean Corpuscular Volume 88.8 fL (78.0-98.0); Mean Platelet Volume 7.1 fL (7.4-10.4); Platelet Count 795 thou/uL (130-400); Red Blood Cell (RBC) Count 3.48 mill/uL (4.20-5.40)
[2019-04-03 15:50] LABS: Anisocytosis SLIGHT = 6-15 cells (100X) (0-5/hpf); Band 6 % (5-11); Lymphocytes 3 % (21-51); MDiff Complete? YES; Monocytes 9 % (0-10); Neutrophil 81 % (42-75); Nucleated RBC 1 % (0); Ovalocytes SLIGHT = 2-5 cells (100X) (0-1/hpf); Platelet Morphology Comment Appears Increased; Poikilocytosis SLIGHT = 6-15 cells (100X) (0-5/hpf); Polychromasia MODERATE = 3-4 cells (100X) (0-2/hpf); Schistocytes SLIGHT = 2-5 cells (100X) (0-1/hpf); Target Cells SLIGHT = 2-5 cells (100X) (0-1/hpf); Tear Drops SLIGHT = 2-5 cells (100X) (0-1/hpf)
[2019-04-03 20:37] LABS: Vancomycin, Trough 9.2 ug/mL
[2019-04-03] MEDS: Atorvastatin Calcium 40 MG TAB PO SCH (21:11)
[2019-04-03] MEDS: fentaNYL Citrate/PF 2,000 MCG in Sodium Chloride 0.9% 60 ML IV PRN (23:38)
[2019-04-03] MEDS: diphenhydrAMINE 25 MG CAP PO PRN (23:48)
[2019-04-04] MEDS: Aztreonam 2 GM in Sodium Chloride 0.9% 100 ML IVPB SCH ×2 (00:49→13:27)
[2019-04-04 04:18] LABS: Anion Gap 12 mmol/L (10-20); BUN (Urea Nitrogen) 14 mg/dL (9.8-20.1); Calc. Creatinine Clearance 91 mL/min (70-130); Calcium 7.5 mg/dL (7.8-10.44); Carbon Dioxide 24 mmol/L (23-31); Chloride 102 mmol/L (98-107); Estimated GFR-MDRD Greater than 90; Glucose 85 mg/dL (80-115); Potassium 3.7 mmol/L (3.5-5.1); Sodium 134 mmol/L (136-145)
[2019-04-04 04:45] LABS: #Eosinphils 0.2 thou/uL (0.0-0.7); #Lymphocytes 2.3 thou/uL (1.20-3.40); #Monocytes 1.9 thou/uL (0.11-0.59); #Neutrophils 15.4 thou/uL (1.40-6.50); %Basophils 0.2 % (0.0-1.0); %Lymphocytes 11.4 % (21.0-51.0); %Monocytes 9.5 % (0.0-10.0); %Neutrophils 77.9 % (42.0-75.0); MDiff Complete? YES; Mean Corpuscular HGB CONC 32.3 g/dL (32.0-36.0); Mean Corpuscular Hemoglobin 28.2 pg (27.0-31.0); Mean Corpuscular Volume 87.2 fL (78.0-98.0); Mean Platelet Volume 7.1 fL (7.4-10.4); Platelet Count 642 thou/uL (130-400); Platelet Morphology Comment Appears Increased; Polychromasia SLIGHT = 2-3 cells (100X) (0-2/hpf); RBC Distribution Width 14.6 % (11.5-14.5); Red Blood Cell (RBC) Count 3.21 mill/uL (4.20-5.40); Target Cells SLIGHT = 2-5 cells (100X) (0-1/hpf); White Blood Cell (WBC) Count 19.7 thou/uL (4.8-10.8)
[2019-04-04] MEDS: Clindamycin/D5W 900 MG in Premix Bag 1 BAG IVPB SCH ×2 (09:15→16:25)
[2019-04-04] MEDS: Aspirin Chewable 81 MG TAB PO SCH (09:19)
[2019-04-04] MEDS: Polyethylene Glycol 3350 17 GM Packet PO SCH (09:19)
[2019-04-04] MEDS: Vancomycin 1.5 GRAM/300 ML BAG 1.5 GM in Premix Bag 1 BAG IVPB SCH ×2 (10:05→21:47)
[2019-04-04] MEDS ORDERED: Floranex Packet PO SCH (21:00)
[2019-04-04] MEDS: Lactinex Tablet PO SCH (21:48)
[2019-04-04] MEDS: Atorvastatin Calcium 40 MG TAB PO SCH (21:48)
[2019-04-04] MEDS: Zolpidem Tartrate 5 MG TAB PO PRN (21:49)
[2019-04-05] MEDS: Clindamycin/D5W 900 MG in Premix Bag 1 BAG IVPB SCH ×3 (01:17→16:34)
[2019-04-05] MEDS: Aztreonam 2 GM in Sodium Chloride 0.9% 100 ML IVPB SCH ×2 (01:18→13:24)
[2019-04-05 04:06] LABS: #Eosinphils 0.2 thou/uL (0.0-0.7); #Lymphocytes 1.6 thou/uL (1.20-3.40); #Monocytes 1.6 thou/uL (0.11-0.59); %Basophils 0.1 % (0.0-1.0); %Eosinophils 1.1 % (0.0-10.0); %Lymphocytes 10.2 % (21.0-51.0); %Monocytes 10.5 % (0.0-10.0); %Neutrophils 78.1 % (42.0-75.0); Hemoglobin 8.8 g/dL (12.0-16.0); Mean Corpuscular HGB CONC 31.2 g/dL (32.0-36.0); Mean Corpuscular Hemoglobin 27.6 pg (27.0-31.0); Mean Corpuscular Volume 88.4 fL (78.0-98.0); Mean Platelet Volume 7.1 fL (7.4-10.4); Platelet Count 639 thou/uL (130-400); RBC Distribution Width 14.9 % (11.5-14.5); Red Blood Cell (RBC) Count 3.18 mill/uL (4.20-5.40); White Blood Cell (WBC) Count 15.4 thou/uL (4.8-10.8)
[2019-04-05 04:33] LABS: Anion Gap 10 mmol/L (10-20); BUN (Urea Nitrogen) 13 mg/dL (9.8-20.1); Calc. Creatinine Clearance 116 mL/min (70-130); Calcium 7.6 mg/dL (7.8-10.44); Carbon Dioxide 26 mmol/L (23-31); Chloride 105 mmol/L (98-107); Estimated GFR-MDRD Greater than 90; Glucose 94 mg/dL (80-115); Sodium 137 mmol/L (136-145)
[2019-04-05] MEDS: fentaNYL Citrate/PF 2,000 MCG in Sodium Chloride 0.9% 60 ML IV PRN (04:33)
[2019-04-05] MEDS: Lactinex Tablet PO SCH ×2 (07:56→20:35)
[2019-04-05] MEDS: Polyethylene Glycol 3350 17 GM Packet PO SCH (07:56)
[2019-04-05] MEDS: Aspirin Chewable 81 MG TAB PO SCH (07:56)
[2019-04-05] MEDS: Vancomycin 1.5 GRAM/300 ML BAG 1.5 GM in Premix Bag 1 BAG IVPB SCH ×2 (08:42→20:36)
[2019-04-05] MEDS ORDERED: Neomycin-Polymyxin 1 ML AMP ONE (10:20)
[2019-04-05] MEDS ORDERED: Ondansetron PF 4 MG/2 ML Vial ONE (10:25)
[2019-04-05] MEDS ORDERED: Glycopyrrolate 0.2 MG/ML 5 ML SYRINGE ONE (10:25)
[2019-04-05] MEDS ORDERED: PROPOFOL 200 MG/20 ML VIAL ONE (10:25)
[2019-04-05] MEDS ORDERED: Rocuronium Bromide 10 MG/ML (10ML VIAL) ONE (10:25)
[2019-04-05] MEDS ORDERED: Lidocaine 1% PF 5 ML VIAL ONE (10:25)
[2019-04-05] MEDS ORDERED: Fentanyl 100 MCG/2 ML VIAL ONE ×2 (10:29→11:56)
--- NOTE | 2019-04-05 13:47 | RAD ---
PORTABLE CHEST ONE VIEW: 04/05/2019 12:44 p.m. HISTORY: Central line placement. COMPARISON: 03/26/2019 FINDINGS: A left subclavian central venous catheter has been placed with the tip in the projection of the SVC. The heart size is enlarged. There is pulmonary vascular congestion with patchy infiltration in the lo wer lung tellez. No pneumothoraces or large effusions are seen. POS: [facility]
--- NOTE | 2019-04-05 18:24 | OP ---
DATE OF PROCEDURE: 04/05/2019 PREOPERATIVE DIAGNOSIS: Abdominal wound infection. POSTOPERATIVE DIAGNOSIS: Abdominal wound infection. PROCEDURES PERFORMED: Excisional debridement of abdominal wound with Pulsavac irrigation and left subclavian central line placement. ANESTHESIA: General endotracheal. ESTIMATED BLOOD LOSS: Minimal. DESCRIPTION OF PROCEDURE: The patient was brought to the operating room and placed in supine position on the operating table. The patient had IV access issues on arrival. The left chest wall was prepped and draped in usual sterile fashion. A 7-Yi triple-lumen line was placed in the subclavian position utilizing modified Seldinger technique. Lines flushed and flowed easily. Sterile dressings were applied. Abdomen was then approached. The wound VAC was removed. There was no odor. The wound was prepped with Betadine and draped. There was a small amount of exudate, which was debrided. There was also a small amount of nonviable subcutaneous tissue on the right, that was debrided. 3 L of Pulsavac irrigation with was then used to copiously irrigate the abdominal wound. Hemostasis was ensured. The wound VAC was replaced. The patient tolerated the procedure well, was awakened, extubated and transferred back to the intensive care unit in stable condition. Job ID: [id number]
[2019-04-05] MEDS: Atorvastatin Calcium 40 MG TAB PO SCH (20:35)
[2019-04-06] MEDS: Clindamycin/D5W 900 MG in Premix Bag 1 BAG IVPB SCH ×4 (00:17→22:58)
[2019-04-06] MEDS: Aztreonam 2 GM in Sodium Chloride 0.9% 100 ML IVPB SCH ×2 (01:43→13:33)
[2019-04-06] MEDS: Zolpidem Tartrate 5 MG TAB PO PRN (02:27)
[2019-04-06] MEDS: fentaNYL Citrate/PF 2,000 MCG in Sodium Chloride 0.9% 60 ML IV PRN (07:42)
[2019-04-06] MEDS: Vancomycin 1.5 GRAM/300 ML BAG 1.5 GM in Premix Bag 1 BAG IVPB SCH ×2 (08:38→21:03)
[2019-04-06] MEDS: Aspirin Chewable 81 MG TAB PO SCH (08:38)
[2019-04-06] MEDS: Lactinex Tablet PO SCH ×2 (08:39→21:03)
[2019-04-06] MEDS: Polyethylene Glycol 3350 17 GM Packet PO SCH (08:39)
[2019-04-06] MEDS: Atorvastatin Calcium 40 MG TAB PO SCH (21:03)
[2019-04-07] MEDS: Aztreonam 2 GM in Sodium Chloride 0.9% 100 ML IVPB SCH ×2 (01:22→14:42)
[2019-04-07] MEDS ORDERED: Ketamine 50 MG/ML (10ML VIAL) ONE (07:23)
[2019-04-07] MEDS ORDERED: Midazolam HCl 2 mg/2 ml Vial ONE (07:23)
[2019-04-07] MEDS ORDERED: Famotidine/PF 20 mg/2ml Vial ONE (07:42)
[2019-04-07] MEDS ORDERED: Vancomycin 1.5 GRAM/300 ML BAG 1.5 GM/300 ML BAG ONE (07:47)
[2019-04-07] MEDS ORDERED: Clindamycin/D5W 900 mg/50 ml Premix Bag ONE (07:47)
[2019-04-07 08:10] LABS: #Basophils 0.1 thou/uL (0.0-0.2); #Eosinphils 0.2 thou/uL (0.0-0.7); #Lymphocytes 1.4 thou/uL (1.20-3.40); #Monocytes 0.9 thou/uL (0.11-0.59); #Neutrophils 8.7 thou/uL (1.40-6.50); %Basophils 0.5 % (0.0-1.0); %Lymphocytes 12.1 % (21.0-51.0); %Monocytes 7.7 % (0.0-10.0); %Neutrophils 77.7 % (42.0-75.0); Hemoglobin 9.1 g/dL (12.0-16.0); Mean Corpuscular HGB CONC 32.2 g/dL (32.0-36.0); Mean Corpuscular Hemoglobin 28.7 pg (27.0-31.0); Mean Corpuscular Volume 89.3 fL (78.0-98.0); Mean Platelet Volume 6.6 fL (7.4-10.4); Platelet Count 670 thou/uL (130-400); RBC Distribution Width 15.1 % (11.5-14.5); Red Blood Cell (RBC) Count 3.17 mill/uL (4.20-5.40); White Blood Cell (WBC) Count 11.2 thou/uL (4.8-10.8)
[2019-04-07] MEDS ORDERED: Fentanyl 100 MCG/2 ML VIAL ONE ×3 (09:08→09:37)
[2019-04-07] MEDS ORDERED: Ondansetron HCl/PF 4 MG/2 ML Vial IVP PRN (09:52)
[2019-04-07] MEDS ORDERED: Promethazine HCl 25 MG/ML VIAL SLOW IVP PRN (09:52)
[2019-04-07] MEDS ORDERED: Promethazine HCl 25 MG/ML VIAL IM PRN (09:52)
[2019-04-07] MEDS ORDERED: PROPOFOL 200 MG/20 ML VIAL ONE (10:11)
[2019-04-07] MEDS ORDERED: Glycopyrrolate 0.2 MG/ML 5 ML SYRINGE ONE (10:11)
[2019-04-07] MEDS ORDERED: Lidocaine 1% PF 5 ML VIAL ONE (10:11)
[2019-04-07] MEDS ORDERED: Ondansetron PF 4 MG/2 ML Vial ONE (10:11)
[2019-04-07] MEDS ORDERED: Rocuronium Bromide 10 MG/ML (10ML VIAL) ONE (10:11)
[2019-04-07] MEDS ORDERED: Succinylcholine Chloride 20 MG/ML 10 ml SYRINGE FS ONE (10:11)
[2019-04-07] MEDS: Clindamycin/D5W 900 MG in Premix Bag 1 BAG IVPB SCH ×2 (11:31→17:49)
[2019-04-07] MEDS: Lactinex Tablet PO SCH ×2 (11:32→20:54)
[2019-04-07] MEDS: Vancomycin 1.5 GRAM/300 ML BAG 1.5 GM in Premix Bag 1 BAG IVPB SCH ×2 (11:32→20:53)
[2019-04-07] MEDS: Polyethylene Glycol 3350 17 GM Packet PO SCH (11:32)
[2019-04-07] MEDS: Aspirin Chewable 81 MG TAB PO SCH (11:32)
--- NOTE | 2019-04-07 12:23 | OP ---
DATE OF PROCEDURE: 04/07/2019 PROCEDURE PERFORMED: Dressing change under anesthesia with irrigation and debridement of abdominal wound and wound VAC application. PREOPERATIVE DIAGNOSIS: Abdominal wound infection, status post aortobifemoral bypass. ANESTHESIA: General endotracheal anesthesia. INDICATIONS: The patient is a 63-year-old woman with peripheral vascular disease who developed a wound infection involving only her abdominal wound following aortobifemoral bypass grafting. The resultant wound led to a fascial dehiscence with containment of the viscera by adherent omentum and significant undermining of the space just superficial to the fascia on the left side of the wound. She is undergoing serial dressing changes and wound debridements under anesthesia. FINDINGS: Craniocaudad dimension of the wound, 30 cm right to left. Dimension including the elevated flap is 30 cm, AP dimension 4 cm. There was excellent granulation on the abdominal wall and adherent omentum. There was scant grossly necrotic fat on the anterior aspect of the elevated flap but only modest granulation. There were two areas, one towards the costal margin and one towards the iliac crest where fat had been significantly denuded from the flap and the overlying skin appeared ischemic. NARRATIVE REPORT: After informed consent was obtained, the patient was taken to the operating room, placed in supine position on the operating table. After the induction of general anesthesia, the patient's existing wound VAC dressing was removed and the wound was prepped and draped in sterile fashion. The wound was inspected. There were no apparent undrained areas of pus and scant necrotic debris primarily bland colored fat on the anterior aspect of the elevated flap on the left side of the wound. Dimensions of the wound were measured and then the wound was curetted and irrigated with 3 L of irrigation using a Pulsavac device. A wound VAC dressing was reapplied and the patient was taken to the recovery area in stable condition. Job ID: [id number]
--- NOTE | 2019-04-07 19:06 | PRG ---
DATE OF SERVICE: 04/07/2019 SUBJECTIVE: Ms. Cifuentes's events have been reviewed. She has no complaints. Her wound is irrigated in the OR again today per my discussion with the nurses. OBJECTIVE: VITAL SIGNS: She is afebrile, blood pressure 123/60, heart rate is in the 90s. LUNGS: Clear. HEART: Regular rhythm. ABDOMEN: Soft. IMPRESSION: 1. Status post pneumonia, hospital acquired. 2. Abdominal wound infection, improving with local care. Surprisingly, she had some anaerobes in her wound, which I would not expect unless there was some type of enteric issue. We will continue supportive care. Job ID: [id number]
[2019-04-07] MEDS: Atorvastatin Calcium 40 MG TAB PO SCH (20:53)
[2019-04-08] MEDS: Clindamycin/D5W 900 MG in Premix Bag 1 BAG IVPB SCH ×3 (00:05→18:43)
[2019-04-08] MEDS: Aztreonam 2 GM in Sodium Chloride 0.9% 100 ML IVPB SCH ×2 (02:03→14:54)
[2019-04-08 08:48] LABS: Vancomycin, Trough 24.2 ug/mL
[2019-04-08] MEDS ORDERED: Vancomycin HCl 1 GM in Premix Bag 1 BAG IVPB SCH (09:00)
[2019-04-08] MEDS: Lactinex Tablet PO SCH ×2 (10:15→21:11)
[2019-04-08] MEDS: Aspirin Chewable 81 MG TAB PO SCH (10:15)
[2019-04-08] MEDS: Polyethylene Glycol 3350 17 GM Packet PO SCH (10:15)
[2019-04-08] MEDS: Acetaminophen 325 MG TAB PO SCH ×3 (14:54→23:10)
[2019-04-08] MEDS: cefTRIAXone\\ROCEPHIN 1 GM in Sodium Chloride 0.9% 100 ML IVPB SCH (18:36)
[2019-04-08] MEDS: fentaNYL Citrate/PF 2,000 MCG in Sodium Chloride 0.9% 60 ML IV PRN (19:20)
[2019-04-08] MEDS: Atorvastatin Calcium 40 MG TAB PO SCH (21:11)
[2019-04-08] MEDS: metroNIDAZOLE 500 MG in Premix Bag 1 BAG IVPB SCH (21:11)
[2019-04-09] MEDS: Ondansetron PF 4 MG/2 ML Vial IVP PRN (04:08)
[2019-04-09] MEDS: metroNIDAZOLE 500 MG in Premix Bag 1 BAG IVPB SCH ×3 (05:42→22:16)
[2019-04-09] MEDS: Acetaminophen 325 MG TAB PO SCH ×4 (06:12→23:26)
[2019-04-09] MEDS ORDERED: Fentanyl 100 MCG/2 ML VIAL ONE ×3 (07:18→08:54)
[2019-04-09] MEDS ORDERED: Midazolam HCl 2 mg/2 ml Vial ONE (07:18)
[2019-04-09] MEDS ORDERED: Phenylephrine HCL 10 MG/ML VIAL ONE (07:18)
[2019-04-09] MEDS ORDERED: Promethazine HCl 25 MG/ML VIAL SLOW IVP PRN (08:02)
[2019-04-09] MEDS ORDERED: HYDROmorphone 2 MG/ML VIAL SLOW IVP PRN (08:02)
[2019-04-09] MEDS ORDERED: Ondansetron HCl/PF 4 MG/2 ML Vial IVP PRN (08:02)
[2019-04-09] MEDS ORDERED: PACU-Morphine 4MG/ML VIAL SLOW IVP PRN (08:02)
[2019-04-09] MEDS ORDERED: Promethazine HCl 25 MG/ML VIAL IM PRN (08:02)
--- NOTE | 2019-04-09 08:11 | CON ---
DATE OF CONSULTATION: 04/08/2019 REASON FOR CONSULTATION: Abdominal wall surgical wound infection. HISTORY OF PRESENT ILLNESS: A 63-year-old lady with history of chronic smoking, treated hepatitis C and reportedly cured, peripheral vascular disease with claudication, hyperlipidemia, hypertension, coronary artery disease with angioplasty and stenting a few years ago, who had aorto-fem bypass by Dr. Hogan on . Surgical report was reviewed and it consisted of a Hemashield vqxyb-[id number] bypass with reimplantation of the inferior mesenteric artery, right common femoral artery endarterectomy, and a right profundoplasty. On 04/03, the patient was admitted with an infected abdominal wound. Dr. Burns was on-call and he removed the sutures and some abdominal wall fascia was debrided back to more healthy fat and irrigated. No pockets were evaluated in the right side, the omentum had sealed the intraabdominal contents to the fascial edge. Since then, the patient has had repeat debridements, the 2nd one was carried out by Dr. Burns and the last one by Dr. Hogan and the patient has a negative pressure dressing in place, and I think she is going to have another procedure tomorrow for revision of the site. The last one did not show any evidence of necrosis or purulent exudate. Currently, she is awake and appears in no distress. Denies any headaches, sore throat, odynophagia, or dysphagia. No dyspnea or chest pain. She has tenderness in the abdominal area when palpated, it is quite intense. She rates it at a 10/10. She is voiding in the diaper. Had a bowel movement today, which she said was okay and feels better because of that. I cannot make any comments on the lower extremities because she has not tried to ambulate yet. PAST MEDICAL HISTORY: 1. Peripheral vascular disease. 2. Coronary artery disease. 3. Chronic hepatitis C, treated with reported negative followup results recently. 4. History of alcoholism in the past, sober since 09/2011. 5. Stenting of coronary arteries. 6. She also has a history of hypertension and hyperlipidemia. ALLERGIES: PENICILLIN, THIS ALLERGY IS NOT WELL DOCUMENTED, IT WAS MORE THAN 40 YEARS AGO, AND WAS APPARENTLY SHE HAD EATEN A CUCUMBER AND THEN REACTED, BUT DOES NOT RECALL EXACTLY WHAT TYPE OF REACTION ANYMORE. SOCIAL HISTORY: As above. She quit smoking about a year ago. Used to drink heavily up until 2011. FAMILY HISTORY: Hypertension and coronary artery disease. PHYSICAL EXAMINATION: VITAL SIGNS: T-max 99.2, blood pressure 120/70, pulse 84, and O2 saturation 96 on room air. SKIN: The patient has a peripheral IV access. Actually, she has a central line in the left subclavian location. No Torres catheter. No lymphadenopathy. HEENT: Ocular movements conjugate. Sclerae white. Pupils are equal. Conjunctivae normal. Oral cavity is not remarkable. NECK: Supple. No jugular vein distention. LUNGS: Symmetric. Clear breath sounds. HEART: S1 and S2. Regular rate. No S3 or S4. No murmurs. ABDOMEN: Soft with marked tenderness around the edges of the large abdominal wound site, which is covered by negative pressure dressing. No bladder distention noted. EXTREMITIES: No joint inflammatory activity. Pulses are diminished in dorsalis pedis. The left foot is bit cooler than the right. No edema noted. She is able to move extremities equally. NEUROLOGIC: She is oriented. Speech is normal. Good recollection. LABORATORY DATA: White cell count is steadily going down from 22 down to 11, hemoglobin 9.1, and platelets 670,000. Sodium 137 and creatinine 0.57. Urinalysis with 7-10 wbc's. Microbiology with tissue cultures from 04/03 with 4 different anaerobes, 2 anaerobic gram-positive rods and cocci, and 2 anaerobic gram- negative rods. ASSESSMENT: Peripheral vascular disease with recent [id number] bypass with postoperative wound infection by anaerobic franki status post repeated washouts with steady improvement in wound appearance and laboratory findings. The patient still with marked tenderness. The patient had a bowel movement and gastrointestinal functions seems to be normalizing. There is no evidence of communication of the wound with the intra-peritoneal compartment. DISCUSSION: This wound appears to be limited to the superficial areas and does not appear to communicate with the graft. The franki retrieved is somewhat typical of skin anaerobes. I do not see any evidence of enterobacteriaceae and I believe all the anaerobes are probably skin organisms associated with fat necrosis. The ideal regimen would be a combination of a penicillin with Flagyl and I believe her penicillin allergy is most likely another significant one. We will go ahead and challenge her with oral amoxicillin or use a cephalosporin along with flagyl. Job ID: [id number] [facility]
--- NOTE | 2019-04-09 08:47 | OP ---
DATE OF PROCEDURE: 04/09/2019 PROCEDURES PERFORMED: Irrigation and debridement of abdominal wound and wound VAC dressing change under anesthesia. PREOPERATIVE DIAGNOSIS: Infected abdominal wound, status post aortobifemoral bypass grafting. POSTOPERATIVE DIAGNOSIS: Infected abdominal wound, status post aortobifemoral bypass grafting. ANESTHESIA: General endotracheal anesthesia. INDICATIONS: The patient is a 63-year-old woman, who underwent an aortobifemoral bypass procedure. Her abdominal wound became infected and has required operative debridement, the extent of the wound is such that even dressing changes need to be done under anesthesia. FINDINGS: A small amount of adherent fibrinous exudate that was debrided. Otherwise, there was excellent granulation on almost all of the surfaces. NARRATIVE REPORT: After informed consent was obtained, the patient was taken to the operating room, placed in supine position on the operating table. After the induction of general anesthesia, the existing wound VAC was removed and a culture swab was used to sample the left lateral recesses of the wound. The patient's abdomen was then prepped and draped and the wound was irrigated with a Pulsavac device. It was inspected in several areas with a small amount of adherent fibrinous debris, it was cleaned up using a 15 blade scalpel to debride it. The remaining irrigation from the 3 L bag was then used to irrigate the wound using the Pulsavac and then, a new wound VAC was applied. The patient was taken to recovery area in stable condition. Job ID: [id number]
[2019-04-09] MEDS: Aspirin Chewable 81 MG TAB PO SCH (09:21)
[2019-04-09] MEDS: Lactinex Tablet PO SCH ×2 (09:21→22:15)
[2019-04-09] MEDS: Polyethylene Glycol 3350 17 GM Packet PO SCH (09:21)
[2019-04-09] MEDS ORDERED: Glycopyrrolate 0.2 MG/ML 5 ML SYRINGE ONE (09:39)
[2019-04-09] MEDS ORDERED: Ondansetron PF 4 MG/2 ML Vial ONE (09:39)
[2019-04-09] MEDS ORDERED: Rocuronium Bromide 10 MG/ML (10ML VIAL) ONE (09:39)
[2019-04-09] MEDS ORDERED: Lidocaine 1% PF 5 ML VIAL ONE (09:39)
[2019-04-09] MEDS ORDERED: PHENYLEPHRINE-NS 100 MCG/ML 10 ML SYRINGE ONE (09:39)
[2019-04-09] MEDS ORDERED: Dexamethasone 20 MG/5 ML VIAL ONE (09:39)
[2019-04-09] MEDS ORDERED: PROPOFOL 200 MG/20 ML VIAL ONE (09:39)
[2019-04-09] MEDS: cefTRIAXone\\ROCEPHIN 1 GM in Sodium Chloride 0.9% 100 ML IVPB SCH (17:36)
[2019-04-09] MEDS: fentaNYL Citrate/PF 2,000 MCG in Sodium Chloride 0.9% 60 ML IV PRN (20:43)
[2019-04-09] MEDS: Atorvastatin Calcium 40 MG TAB PO SCH (22:15)
[2019-04-10] MEDS: metroNIDAZOLE 500 MG in Premix Bag 1 BAG IVPB SCH ×3 (06:08→23:50)
[2019-04-10] MEDS: Acetaminophen 325 MG TAB PO SCH ×4 (06:08→23:50)
[2019-04-10] MEDS: Lactinex Tablet PO SCH ×2 (07:33→20:06)
[2019-04-10] MEDS: Aspirin Chewable 81 MG TAB PO SCH (07:33)
[2019-04-10] MEDS: Polyethylene Glycol 3350 17 GM Packet PO SCH (07:33)
[2019-04-10] MEDS: fentaNYL Citrate/PF 2,000 MCG in Sodium Chloride 0.9% 60 ML IV PRN (15:58)
[2019-04-10] MEDS: cefTRIAXone\\ROCEPHIN 1 GM in Sodium Chloride 0.9% 100 ML IVPB SCH (16:04)
--- NOTE | 2019-04-10 17:30 | PRG ---
DATE OF SERVICE: 04/10/2019 SUBJECTIVE: Had a washout yesterday. The operative note was reviewed, and swab cultures were taken from the wound recess. There is a small amount of adherent fibrinous debris, which was cleared with a blade, and then, the area was irrigated. The pain is improving according to the patient. No respiratory symptoms. No chest pain. No diarrhea. OBJECTIVE: VITAL SIGNS: She is afebrile. Other vital signs are normal. GENERAL: Awake, alert, and oriented. LUNGS: Clear. HEART: S1 and S2. Regular rate. ABDOMEN: With a midline negative pressure dressing. EXTREMITIES: Moves extremities equally. The left extremity is a bit cooler than the right. LABORATORY DATA: White cell count is down to 11.2, hemoglobin 9.1, platelets 670. Creatinine 0.57. Repeat cultures are pending. Currently, on Rocephin and Flagyl. ASSESSMENT AND DISCUSSION: Peripheral vascular disease with aortobifemoral bypass. Postoperative wound infection with anaerobic franki, managed with repeated washouts, seems to be limited to the soft tissues. No evidence of communication with the intraperitoneal compartment. Duration of therapy will be until the wound is felt to be satisfactory and then can be transitioned to oral antimicrobial therapy with cephalosporin and Flagyl for a few more days after that. Job ID: [id number]
[2019-04-10] MEDS: Atorvastatin Calcium 40 MG TAB PO SCH (20:06)
--- NOTE | 2019-04-10 20:07 | PRG ---
DATE OF SERVICE: 04/10/2019 Ms. Cifuentes is in no distress. She is scheduled for a wound washout tomorrow. She is afebrile. Her hemodynamics have been stable. Her lungs are clear. Heart, regular rhythm. Abdomen, Soft. In my opinion, she can move out of the intermediate care unit. Transfer to medical or surgical bed. We will defer to thoracic surgeon. Dr. Bryant is following. We will continue to see you intermittently. Please feel free to call us if there is any decompensation or change in her clinical status. Job ID: [id number]
[2019-04-11] MEDS: Ondansetron PF 4 MG/2 ML Vial IVP PRN (01:04)
[2019-04-11] MEDS: Acetaminophen 325 MG TAB PO SCH ×3 (05:27→15:36)
[2019-04-11] MEDS: metroNIDAZOLE 500 MG in Premix Bag 1 BAG IVPB SCH ×3 (05:28→22:08)
[2019-04-11] MEDS ORDERED: Ketamine 50 MG/ML (10ML VIAL) ONE (06:36)
[2019-04-11] MEDS ORDERED: Midazolam HCl 2 mg/2 ml Vial ONE (06:36)
--- NOTE | 2019-04-11 09:28 | OP ---
DATE OF PROCEDURE: 04/11/2019 PROCEDURE PERFORMED: Abdominal wound irrigation and wound VAC change under anesthesia. PREOPERATIVE DIAGNOSIS: Abdominal wound infection. POSTOPERATIVE DIAGNOSIS: Abdominal wound infection. ANESTHESIA: General endotracheal anesthesia. INDICATIONS: The patient is a 63-year-old woman with peripheral vascular disease. She had an extensive infection of her abdominal wound following aortobifemoral bypass grafting. She is being taken in serial fashion to the operating room for I and D of her wound and dressing change. FINDINGS: Good granulation. Wound dimensions 25cm X 30cm X 4cm NARRATIVE REPORT: After informed consent was obtained, the patient was taken to the operating room, placed in supine position on the operating table. After the induction of general anesthesia, the existing wound VAC was removed and a culture swab of the recesses along the left lateral aspect of the wound was taken. The wound was then prepped and draped in sterile fashion. The excess Betadine was wiped and rinsed out. The wound examined. There was hardly any adherent blood clot or fibrinous exudate and no debridement beyond that done with the Pulsavac and lap sponges were necessary. 3 L of sterile irrigant was applied with the Pulsavac, and a new wound VAC was applied. She has been taken to the recovery area in stable condition. Job ID: [id number] [facility]
--- NOTE | 2019-04-11 10:06 | PRG ---
DATE OF SERVICE: 04/11/2019 SUBJECTIVE: Ms. Cifuentes is in no distress. OBJECTIVE: VITAL SIGNS: She is afebrile. She is on room air, heart rate 80, blood pressure 140/81, respiratory rate in the teens. LUNGS: Clear. HEART: Regular rhythm. ABDOMEN: Soft. She has already had her abdominal washout procedure today. LABORATORY DATA: There is no new lab on her. IMPRESSION: 1. Wound infection after an aortofemoral bypass, not felt to be communicating with the peritoneal cavity. 2. Nosocomial pneumonia, resolved. 3. Status post aortofemoral bypass. 4. Deconditioning. She is stable in my opinion to move to a surgical bed. We will follow her as long as she is in the intermediate care unit. Job ID: [id number]
[2019-04-11] MEDS: Aspirin Chewable 81 MG TAB PO SCH (10:23)
[2019-04-11] MEDS: Lactinex Tablet PO SCH ×2 (10:23→20:15)
[2019-04-11] MEDS: Polyethylene Glycol 3350 17 GM Packet PO SCH (10:25)
[2019-04-11] MEDS ORDERED: Succinylcholine Chloride 20 MG/ML 10 ml SYRINGE FS ONE (14:21)
[2019-04-11] MEDS ORDERED: Ondansetron PF 4 MG/2 ML Vial ONE (14:21)
[2019-04-11] MEDS ORDERED: Glycopyrrolate 0.2 MG/ML 5 ML SYRINGE ONE (14:21)
[2019-04-11] MEDS ORDERED: Rocuronium Bromide 10 MG/ML (10ML VIAL) ONE (14:21)
[2019-04-11] MEDS ORDERED: Lidocaine 1% PF 5 ML VIAL ONE (14:21)
[2019-04-11] MEDS ORDERED: PROPOFOL 200 MG/20 ML VIAL ONE (14:21)
[2019-04-11] MEDS: fentaNYL Citrate/PF 2,000 MCG in Sodium Chloride 0.9% 60 ML IV PRN (15:29)
[2019-04-11] MEDS: cefTRIAXone\\ROCEPHIN 1 GM in Sodium Chloride 0.9% 100 ML IVPB SCH (19:06)
[2019-04-11] MEDS: Atorvastatin Calcium 40 MG TAB PO SCH (20:15)
[2019-04-12] MEDS: Acetaminophen 325 MG TAB PO SCH ×5 (00:51→23:50)
[2019-04-12 03:46] LABS: #Basophils 0.1 thou/uL (0.0-0.2); #Eosinphils 0.3 thou/uL (0.0-0.7); #Lymphocytes 1.7 thou/uL (1.20-3.40); #Monocytes 0.7 thou/uL (0.11-0.59); #Neutrophils 5.7 thou/uL (1.40-6.50); %Basophils 0.8 % (0.0-1.0); %Lymphocytes 19.6 % (21.0-51.0); %Monocytes 8.1 % (0.0-10.0); %Neutrophils 67.6 % (42.0-75.0); Hemoglobin 7.6 g/dL (12.0-16.0); Mean Corpuscular HGB CONC 30.6 g/dL (32.0-36.0); Mean Corpuscular Hemoglobin 27.4 pg (27.0-31.0); Mean Corpuscular Volume 89.7 fL (78.0-98.0); Mean Platelet Volume 6.5 fL (7.4-10.4); Platelet Count 632 thou/uL (130-400); RBC Distribution Width 16.5 % (11.5-14.5); Red Blood Cell (RBC) Count 2.76 mill/uL (4.20-5.40); White Blood Cell (WBC) Count 8.5 thou/uL (4.8-10.8)
[2019-04-12 03:59] LABS: Anion Gap 8 mmol/L (10-20); BUN (Urea Nitrogen) 5 mg/dL (9.8-20.1); Calc. Creatinine Clearance 127 mL/min (70-130); Calcium 7.6 mg/dL (7.8-10.44); Carbon Dioxide 25 mmol/L (23-31); Chloride 108 mmol/L (98-107); Estimated GFR-MDRD Greater than 90; Glucose 84 mg/dL (80-115); Potassium 3.3 mmol/L (3.5-5.1); Sodium 138 mmol/L (136-145)
[2019-04-12] MEDS: metroNIDAZOLE 500 MG in Premix Bag 1 BAG IVPB SCH ×3 (05:31→20:59)
[2019-04-12] MEDS: fentaNYL Citrate/PF 2,000 MCG in Sodium Chloride 0.9% 60 ML IV PRN ×2 (07:09→18:41)
[2019-04-12] MEDS: Aspirin Chewable 81 MG TAB PO SCH (09:36)
[2019-04-12] MEDS: Lactinex Tablet PO SCH ×2 (09:36→20:59)
[2019-04-12] MEDS: Polyethylene Glycol 3350 17 GM Packet PO SCH (09:36)
--- NOTE | 2019-04-12 10:54 | PRG ---
DATE OF SERVICE: 04/12/2019 The patient has remained afebrile. There is a recorded output from her drain over the past 24 hours of 150 mL and it appears bloody. Her abdominal wound looks good with the dressing in place and no complaints of pain and her abdomen is soft on palpation. Blood pressure is 150 this morning and her heart rate is 78. Hemoglobin has decreased from last check on 04/07 from 9.1 to 7.6, so I will go ahead and transfuse her 2 units of packed red cells. Her platelet count is stabilized at about 600,000. Her white count is normal. Electrolytes are satisfactory with a low potassium and this will be repleted. We will transfer her to the surgical floor. Job ID: [id number] [facility]
[2019-04-12] MEDS: cefTRIAXone\\ROCEPHIN 1 GM in Sodium Chloride 0.9% 100 ML IVPB SCH (18:02)
[2019-04-12] MEDS: Potassium Chloride 20 MEQ TAB PO SCH (18:03)
[2019-04-12] MEDS: Atorvastatin Calcium 40 MG TAB PO SCH (20:59)
[2019-04-13] MEDS: metroNIDAZOLE 500 MG in Premix Bag 1 BAG IVPB SCH ×3 (05:37→21:04)
[2019-04-13] MEDS: Acetaminophen 325 MG TAB PO SCH ×4 (05:38→23:13)
[2019-04-13] MEDS: Ondansetron PF 4 MG/2 ML Vial IVP PRN (05:51)
[2019-04-13 06:00] LABS: #Eosinphils 0.3 thou/uL (0.0-0.7); #Lymphocytes 1.3 thou/uL (1.20-3.40); #Monocytes 0.5 thou/uL (0.11-0.59); #Neutrophils 6.8 thou/uL (1.40-6.50); %Basophils 0.5 % (0.0-1.0); %Lymphocytes 15.1 % (21.0-51.0); %Monocytes 5.1 % (0.0-10.0); %Neutrophils 76.3 % (42.0-75.0); Hemoglobin 11.1 g/dL (12.0-16.0); Mean Corpuscular HGB CONC 31.5 g/dL (32.0-36.0); Mean Corpuscular Hemoglobin 28.3 pg (27.0-31.0); Mean Corpuscular Volume 89.6 fL (78.0-98.0); Mean Platelet Volume 6.8 fL (7.4-10.4); Platelet Count 604 thou/uL (130-400); RBC Distribution Width 15.8 % (11.5-14.5); Red Blood Cell (RBC) Count 3.93 mill/uL (4.20-5.40); White Blood Cell (WBC) Count 8.9 thou/uL (4.8-10.8)
[2019-04-13 06:12] LABS: Anion Gap 10 mmol/L (10-20); BUN (Urea Nitrogen) Less than 4 mg/dL (9.8-20.1); Calc. Creatinine Clearance 127 mL/min (70-130); Carbon Dioxide 24 mmol/L (23-31); Chloride 107 mmol/L (98-107); Estimated GFR-MDRD Greater than 90; Glucose 76 mg/dL (80-115); Potassium 3.9 mmol/L (3.5-5.1); Sodium 137 mmol/L (136-145)
[2019-04-13] MEDS: Lactinex Tablet PO SCH ×2 (07:58→20:11)
[2019-04-13] MEDS: Aspirin Chewable 81 MG TAB PO SCH (07:58)
[2019-04-13] MEDS: Polyethylene Glycol 3350 17 GM Packet PO SCH (07:58)
[2019-04-13] MEDS: Potassium Chloride 20 MEQ TAB PO SCH ×2 (07:58→16:23)
[2019-04-13] MEDS: fentaNYL Citrate/PF 2,000 MCG in Sodium Chloride 0.9% 60 ML IV PRN (15:26)
[2019-04-13] MEDS: cefTRIAXone\\ROCEPHIN 1 GM in Sodium Chloride 0.9% 100 ML IVPB SCH (17:54)
[2019-04-13] MEDS: Atorvastatin Calcium 40 MG TAB PO SCH (20:11)
[2019-04-14] MEDS: metroNIDAZOLE 500 MG in Premix Bag 1 BAG IVPB SCH ×3 (05:32→21:04)
[2019-04-14] MEDS: Acetaminophen 325 MG TAB PO SCH ×4 (05:52→23:51)
[2019-04-14] MEDS ORDERED: Midazolam HCl 2 mg/2 ml Vial ONE (06:31)
[2019-04-14] MEDS ORDERED: Ketamine 50 MG/ML (10ML VIAL) ONE (06:31)
[2019-04-14] MEDS: Polyethylene Glycol 3350 17 GM Packet PO SCH (09:07)
[2019-04-14] MEDS: Lactinex Tablet PO SCH ×2 (09:07→20:50)
[2019-04-14] MEDS: Aspirin Chewable 81 MG TAB PO SCH (09:07)
[2019-04-14] MEDS ORDERED: Fentanyl 100 MCG/2 ML VIAL ONE (09:47)
[2019-04-14] MEDS ORDERED: Ondansetron HCl/PF 4 MG/2 ML Vial IVP PRN (10:55)
[2019-04-14] MEDS ORDERED: Ketorolac Tromethamine 30 MG/ML VIAL IVP PRN (10:55)
--- NOTE | 2019-04-14 11:27 | OP ---
DATE OF PROCEDURE: 04/14/2019 PROCEDURE PERFORMED: Dressing change under anesthesia. PREOPERATIVE DIAGNOSIS: Abdominal wound infection status post aortobifemoral bypass grafting. POSTOPERATIVE DIAGNOSIS: Abdominal wound infection status post aortobifemoral bypass grafting. ANESTHESIA: Intravenous sedation with monitored anesthesia care. INDICATIONS: The patient is a 63-year-old woman, who has been undergoing serial wound irrigations, debridements, and wound VAC changes to deal with a large abdominal wound following aortobifemoral bypass grafting. While the wound still undermines, the left side considerably is granulating well and scant debridement has been recently necessary. She is now taken to the operating room for a dressing change with a plan to see how well she will tolerate this without general anesthesia. FINDINGS: A total of 100 mcg of fentanyl used, 50 mcg at a time for IV sedation. The wound continues to granulate and no debridement was needed. The wound measured 27 cm craniocaudad by 15 cm [id number] with an additional 9 cm undermining versus the initial 15 cm undermining. NARRATIVE REPORT: After informed consent was obtained, the patient was taken to the operating room, placed in the supine position on the operating table. A 50 mcg of fentanyl was given and adhesive part of the dressing extending onto the skin was gently elevated circumferentially and then, the foam was removed from the wound. The left-sided flap was elevated and the wound inspected. There was no purulence or obviously necrotic debris. There was no fibrinous debris to remove. A wound culture was taken of that recess. Measurements taken and the wound care team reapplied a wound VAC. During the procedure, she received an additional 50 mcg of fentanyl to control pain and her anxiety about the procedure. She tolerated the procedure well. Job ID: [id number]
[2019-04-14] MEDS: Ondansetron PF 4 MG/2 ML Vial IVP PRN ×2 (11:34→20:52)
[2019-04-14] MEDS: fentaNYL Citrate/PF 2,000 MCG in Sodium Chloride 0.9% 60 ML IV PRN ×2 (11:38→21:05)
[2019-04-14] MEDS ORDERED: oxyCODONE/Acetaminophen 5 mg/325 mg Tablet PO SCH (15:30)
--- NOTE | 2019-04-14 16:34 | PRG ---
DATE OF SERVICE: 04/14/2019 SUBJECTIVE: Feeling better. Less pain. Able to urinate without problems. No diarrhea. OBJECTIVE: VITAL SIGNS: Afebrile. LUNGS: Clear. HEART: S1 and S2. Regular rate. ABDOMEN: With negative pressure dressing. EXTREMITIES: Warm. LABORATORY DATA: White cell count 8.9, hemoglobin 11, platelets 604. All index steadily improving. Followup cultures, negative from past 4 times. The wound looks really nice and granulating well. No need for debridement last time around. ASSESSMENT AND DISCUSSION: Peripheral vascular disease with aortobifemoral and postoperative wound infection with anaerobic franki, status post repeated debridement and washouts. The wound is looking good, so I think, we could consider discontinuing antimicrobial therapy whenever she is discharged. Job ID: [id number]
[2019-04-14] MEDS: cefTRIAXone\\ROCEPHIN 1 GM in Sodium Chloride 0.9% 100 ML IVPB SCH (17:51)
[2019-04-14] MEDS: Atorvastatin Calcium 40 MG TAB PO SCH (20:50)
[2019-04-15] MEDS: Acetaminophen 325 MG TAB PO SCH ×4 (05:19→21:58)
[2019-04-15] MEDS: metroNIDAZOLE 500 MG in Premix Bag 1 BAG IVPB SCH ×3 (05:19→21:56)
[2019-04-15] MEDS: Ondansetron PF 4 MG/2 ML Vial IVP PRN (06:29)
[2019-04-15 06:42] LABS: #Basophils 0.1 thou/uL (0.0-0.2); #Eosinphils 0.2 thou/uL (0.0-0.7); #Lymphocytes 1.8 thou/uL (1.20-3.40); #Monocytes 0.7 thou/uL (0.11-0.59); #Neutrophils 5.3 thou/uL (1.40-6.50); %Basophils 0.8 % (0.0-1.0); %Eosinophils 2.9 % (0.0-10.0); %Lymphocytes 21.9 % (21.0-51.0); %Monocytes 8.5 % (0.0-10.0); %Neutrophils 65.9 % (42.0-75.0); Mean Corpuscular HGB CONC 31.4 g/dL (32.0-36.0); Mean Corpuscular Hemoglobin 28.9 pg (27.0-31.0); Mean Corpuscular Volume 91.8 fL (78.0-98.0); Mean Platelet Volume 6.8 fL (7.4-10.4); Platelet Count 434 thou/uL (130-400); RBC Distribution Width 16.1 % (11.5-14.5); Red Blood Cell (RBC) Count 2.78 mill/uL (4.20-5.40); White Blood Cell (WBC) Count 8.1 thou/uL (4.8-10.8)
[2019-04-15] MEDS: Lactinex Tablet PO SCH ×2 (10:17→20:37)
[2019-04-15] MEDS: Aspirin Chewable 81 MG TAB PO SCH (10:17)
[2019-04-15] MEDS: Polyethylene Glycol 3350 17 GM Packet PO SCH (10:19)
[2019-04-15] MEDS: Iron Polysaccharides Complex 150 MG CAP PO SCH ×2 (14:06→20:37)
[2019-04-15] MEDS: fentaNYL Citrate/PF 2,000 MCG in Sodium Chloride 0.9% 60 ML IV PRN (15:03)
[2019-04-15] MEDS: cefTRIAXone\\ROCEPHIN 1 GM in Sodium Chloride 0.9% 100 ML IVPB SCH (18:02)
[2019-04-15] MEDS: Atorvastatin Calcium 40 MG TAB PO SCH (20:36)
[2019-04-16] MEDS: Acetaminophen 325 MG TAB PO SCH ×3 (05:08→18:03)
[2019-04-16] MEDS: metroNIDAZOLE 500 MG in Premix Bag 1 BAG IVPB SCH ×3 (05:09→21:14)
[2019-04-16] MEDS ORDERED: oxyCODONE/Acetaminophen 5 mg/325 mg Tablet PO PRN (07:47)
[2019-04-16] MEDS: Iron Polysaccharides Complex 150 MG CAP PO SCH ×2 (09:41→21:32)
[2019-04-16] MEDS: Aspirin Chewable 81 MG TAB PO SCH (09:41)
[2019-04-16] MEDS: Ondansetron PF 4 MG/2 ML Vial IVP PRN ×2 (09:45→18:53)
[2019-04-16] MEDS: Lactinex Tablet PO SCH ×2 (09:45→21:13)
[2019-04-16] MEDS: Polyethylene Glycol 3350 17 GM Packet PO SCH (09:45)
[2019-04-16] MEDS: oxyCODONE/Acetaminophen 5 mg/325 mg Tablet PO PRN ×3 (10:30→18:50)
[2019-04-16] MEDS ORDERED: Lidocaine 4% Topical Sol 50 ML BOT TOP PRN (13:19)
[2019-04-16] MEDS: cefTRIAXone\\ROCEPHIN 1 GM in Sodium Chloride 0.9% 100 ML IVPB SCH (18:03)
[2019-04-16] MEDS: Atorvastatin Calcium 40 MG TAB PO SCH (21:14)
[2019-04-17] MEDS: oxyCODONE/Acetaminophen 5 mg/325 mg Tablet PO PRN (00:07)
[2019-04-17] MEDS: Acetaminophen 325 MG TAB PO SCH ×4 (00:16→18:05)
[2019-04-17] MEDS: metroNIDAZOLE 500 MG in Premix Bag 1 BAG IVPB SCH (06:16)
[2019-04-17] MEDS: Ondansetron PF 4 MG/2 ML Vial IVP PRN ×2 (06:22→09:45)
[2019-04-17] MEDS: Polyethylene Glycol 3350 17 GM Packet PO SCH (10:04)
[2019-04-17] MEDS: Aspirin Chewable 81 MG TAB PO SCH (11:49)
[2019-04-17] MEDS: Iron Polysaccharides Complex 150 MG CAP PO SCH ×2 (11:49→20:09)
[2019-04-17] MEDS: Lactinex Tablet PO SCH ×2 (11:49→20:09)
[2019-04-17] MEDS ORDERED: Ondansetron ODT 4 MG TAB PO PRN (17:30)
[2019-04-17] MEDS: Atorvastatin Calcium 40 MG TAB PO SCH (20:09)
[2019-04-18] MEDS: Acetaminophen 325 MG TAB PO SCH ×5 (00:28→23:10)
[2019-04-18] MEDS: oxyCODONE/Acetaminophen 5 mg/325 mg Tablet PO PRN ×2 (06:06→09:45)
[2019-04-18] MEDS: Lactinex Tablet PO SCH ×2 (09:31→21:44)
[2019-04-18] MEDS: Aspirin Chewable 81 MG TAB PO SCH (09:31)
[2019-04-18] MEDS: Iron Polysaccharides Complex 150 MG CAP PO SCH ×2 (09:31→21:45)
[2019-04-18] MEDS: Polyethylene Glycol 3350 17 GM Packet PO SCH (09:31)
[2019-04-18] MEDS ORDERED: HYDROcodone/Acetaminophen 5/325 mg Tablet PO PRN (11:09)
[2019-04-18] MEDS: HYDROcodone/Acetaminophen 5/325 mg Tablet PO PRN ×2 (12:10→17:34)
[2019-04-18] MEDS: diphenhydrAMINE 25 MG CAP PO PRN ×2 (17:37→23:08)
[2019-04-18] MEDS: Atorvastatin Calcium 40 MG TAB PO SCH (21:45)
[2019-04-19] MEDS: HYDROcodone/Acetaminophen 5/325 mg Tablet PO PRN ×4 (06:48→19:47)
[2019-04-19] MEDS: Acetaminophen 325 MG TAB PO SCH ×4 (06:50→23:58)
[2019-04-19] MEDS: diphenhydrAMINE 25 MG CAP PO PRN ×4 (06:51→19:54)
[2019-04-19] MEDS: Aspirin Chewable 81 MG TAB PO SCH (09:17)
[2019-04-19] MEDS: Lactinex Tablet PO SCH ×2 (09:17→19:55)
[2019-04-19] MEDS: Polyethylene Glycol 3350 17 GM Packet PO SCH (09:17)
[2019-04-19] MEDS: Iron Polysaccharides Complex 150 MG CAP PO SCH ×2 (09:17→19:55)
[2019-04-19] MEDS: Atorvastatin Calcium 40 MG TAB PO SCH (19:55)
[2019-04-20] MEDS: Acetaminophen 325 MG TAB PO SCH ×3 (06:17→17:18)
[2019-04-20] MEDS: HYDROcodone/Acetaminophen 5/325 mg Tablet PO PRN ×3 (06:20→22:00)
[2019-04-20] MEDS: diphenhydrAMINE 25 MG CAP PO PRN ×4 (06:23→22:04)
[2019-04-20] MEDS: Lactinex Tablet PO SCH ×2 (09:07→22:07)
[2019-04-20] MEDS: Polyethylene Glycol 3350 17 GM Packet PO SCH (09:07)
[2019-04-20] MEDS: Aspirin Chewable 81 MG TAB PO SCH (09:07)
[2019-04-20] MEDS: Iron Polysaccharides Complex 150 MG CAP PO SCH ×2 (09:07→21:59)
[2019-04-20] MEDS: Atorvastatin Calcium 40 MG TAB PO SCH (21:59)
[2019-04-21] MEDS: Acetaminophen 325 MG TAB PO SCH ×5 (00:08→23:55)
[2019-04-21] MEDS: HYDROcodone/Acetaminophen 5/325 mg Tablet PO PRN ×5 (02:17→20:11)
[2019-04-21] MEDS: diphenhydrAMINE 25 MG CAP PO PRN ×5 (02:21→20:10)
[2019-04-21] MEDS: Iron Polysaccharides Complex 150 MG CAP PO SCH ×2 (08:23→20:11)
[2019-04-21] MEDS: Polyethylene Glycol 3350 17 GM Packet PO SCH (08:23)
[2019-04-21] MEDS: Aspirin Chewable 81 MG TAB PO SCH (08:23)
[2019-04-21] MEDS: Lactinex Tablet PO SCH ×2 (08:23→20:10)
[2019-04-21 10:21] VITALS: BMI 23.2
[2019-04-21] MEDS: Atorvastatin Calcium 40 MG TAB PO SCH (20:10)
[2019-04-22] MEDS: diphenhydrAMINE 25 MG CAP PO PRN ×5 (00:31→22:26)
[2019-04-22] MEDS: HYDROcodone/Acetaminophen 5/325 mg Tablet PO PRN ×6 (00:31→22:26)
[2019-04-22] MEDS: Acetaminophen 325 MG TAB PO SCH ×4 (05:18→23:31)
[2019-04-22] MEDS: Iron Polysaccharides Complex 150 MG CAP PO SCH ×2 (08:33→20:54)
[2019-04-22] MEDS: Lactinex Tablet PO SCH ×2 (08:33→20:54)
[2019-04-22] MEDS: Aspirin Chewable 81 MG TAB PO SCH (08:34)
[2019-04-22] MEDS: Polyethylene Glycol 3350 17 GM Packet PO SCH (08:34)
[2019-04-22] MEDS: Atorvastatin Calcium 40 MG TAB PO SCH (20:54)
[2019-04-23] MEDS: Acetaminophen 325 MG TAB PO SCH ×2 (05:05→11:36)
[2019-04-23] MEDS: diphenhydrAMINE 25 MG CAP PO PRN ×3 (05:07→13:44)
[2019-04-23] MEDS: HYDROcodone/Acetaminophen 5/325 mg Tablet PO PRN ×3 (05:07→13:44)
[2019-04-23] MEDS: Aspirin Chewable 81 MG TAB PO SCH (09:15)
[2019-04-23] MEDS: Polyethylene Glycol 3350 17 GM Packet PO SCH (09:16)
[2019-04-23] MEDS: Lactinex Tablet PO SCH (09:16)
[2019-04-23] MEDS: Iron Polysaccharides Complex 150 MG CAP PO SCH (09:16)
[2019-04-23 15:35] VITALS: BP 137/87; TEMP 98.1
--- NOTE | 2019-04-23 16:00 | DIS ---
DATE OF ADMISSION: 03/17/2019 DATE OF DISCHARGE: 04/23/2019 PRINCIPAL DIAGNOSIS: Peripheral vascular disease. SECONDARY DIAGNOSES: Abdominal wound infection and right lower lobe pneumonia, debilitation but not specifically addressed, hypertension, hypercholesterolemia, history of hepatitis C, and coronary artery disease. PROCEDURES PERFORMED: 12 x 7 mm Hemashield aortobifemoral bypass with reimplantation of inferior mesenteric artery, right common femoral artery endarterectomy and profundoplasty on 03/17/2019. Abdominal wound irrigation and debridements on 04/03/2019, 04/05/2019, 04/09/2019, 04/11/2019, 04/14/2019. HISTORY OF PRESENT ILLNESS AND HOSPITAL COURSE: The patient is a 63-year-old woman with known peripheral vascular disease, having undergone multiple percutaneous procedures for left lower extremity revascularization culminating in an open iliofemoral endarterectomy and profundoplasty for rest pain in early 2016. At that time, she had a palpable femoral pulse on the right side and her right leg had been asymptomatic, since then she developed a crampy pain in the right calf on ambulation consistent with vascular claudication. This progressed in severity in spite of attempts at walking and successful attempt at smoking cessation. Her CTA showed a widely patent left iliac system with a diffusely diseased right iliac system extending up to the common iliac. Her screening stress test was abnormal, prompting cardiac catheterization. This demonstrated occlusion of a previously stented, but very small circumflex vessel, and otherwise, no obstructive coronary artery disease and good LV function. She underwent what initially appeared to be an uneventful aortobifemoral grafting procedure. Postoperatively, she had palpable dorsalis pedis in her right foot and dopplerable posterior tibials and dorsalis pedis pulses bilaterally. She was very poorly cooperative with mobilization to the point of using a diaper rather than getting out of bed to use a potty chair or go to the bathroom. She began developing some fever and a productive cough. Her chest x-ray showed a right lower lobe infiltrate consistent with a pneumonia and she was started on antibiotics with resolution of her fever. At about 2 weeks postoperatively, she began developing some drainage from the inferior apex of her abdominal wound that initially was only a very small amount and little if any could be expressed that progressed however, and at about 10 days postoperatively, the drainage was sufficiently copious that bedside examination and exploration of the wound demonstrated that there was a considerable collection of turbid fluid just superficial to the fascia going the entire extent of the wound. The worst involved is left upper area of the wound and in spite of use of a wound VAC that area progressed and she required surgical debridements with a considerable degree of undermining of the left abdominal wall. She appeared to have a fascial dehiscence, but rather thick omentum was densely adherent containing the abdominal contents preventing evisceration. The fascial dehiscence appeared to be fairly extensive implying that should she remain intact that the inevitable hernia should be rather broad and very low risk for incarceration. Her wound finally began to clean up enough and granulate well enough that she required a little in the way of debridement or aggressive irrigation. Wound change was done under light sedation in the operating room, which she was able to tolerate. She had some bleeding from the left lateral inferior aspect of the wound that day and her wound that was controlled with Vicryl suture and she was able to tolerate that dressing change even better than the one she had in the operating room earlier that day. The remaining of her wound VAC changes were done with nothing more than pain medicine given in anticipation of the dressing change. The initial wound cultures eventually grew out mixed anaerobic franki consistent with skin anaerobes. Subsequent wound cultures done in the operating room were unremarkable as the wound began to granulate, her antibiotics for that coverage were stopped without any recurrence of fever or deterioration in the wound. She is now being transferred to [facility] for physical therapy and wound care. Job ID: [id number]
--- NOTE | 2019-04-24 02:50 | PQF ---
JESS CHIN GEORG [id number] [facility] A- [id number] CLINICAL DOCUMENTATION CLARIFICATION FORM: POST DISCHARGE Addendum to original discharge summary date: ____ Late entry note date: __ DATE: 04/24/2019 ATTN: Jorge Rico Please exercise your independent, professional judgment in responding to the clarification form. Clinical indicators are provided on the bottom of this form for your review Please check appropriate box(es): [ ] Sepsis due to Pneumonia [ ] Sepsis due to Postoperative wound infection [ ] Severe sepsis with acute organ dysfunction of: (Examples: respiratory failure, encephalopathy, acute kidney failure, other) [ ] Septic Shock [ x ] Localized infection without sepsis [ x ] Other diagnosis Pneumonia [ ] Unable to determine In addition, please specify: Present on Admission (POA): [ ] Yes [ ] No [ ] Unable to determine For continuity of documentation, please document condition throughout progress notes and discharge summary. Thank You. CLINICAL INDICATORS - SIGNS / SYMPTOMS / LABS Laboratory chemistry 03/27 WBC 12.5 Laboratory chemistry WBC 22.2 Vital sign 03/27 Temp 99.7, BP 116/56, O2 saturation 92% Chest X-ray p1 03/26 Impression : Bibasilar lung changes most suggestive of bibasilar infiltrates Pulmo consult p1 03/27 She has bilateral lower lobe infiltrates now on an x- ray and had a temperature spike to 100.7 on the . PN p1 04/01 Dr Killian about 5-6 days s/p opening of her infected abdominal wound [employer] Pulmo consult p2 03/27 Pneumonia Pulmo consult p2 03/27 s/p Aortofemoral bypass Operative note p1 04/03 Infected abdominal wound s/p aortobifemoral bypass TREATMENTS: Pulmonary consult 03/27 Akshat Muniz Respiratory panel 03/27 Oxygen on 2L Operative note p1 04/03 Excisional debridement of abdominal wall MAY 31 IV Clindamycin MAY 31 IV Vancomycin MAY 31 IV Ceftriaxone (This form is maintained as a part of the permanent medical record) 2014 [employer]. All Rights Reserved [email or web address] [not provided] MTDD
== END 2019-04-23 16:15 | DRG 270 ==
LOC: SURG A 03-17 05:35 → CCU 03-17 16:25 → 2NO 03-18 15:04 → SURG A 03-28 10:04 → CCU 04-03 13:43 → IMCU/EMU 04-06 10:21 → SJJU 04-12 16:10
PROVIDERS: ADMIT Thoracic Surgery (Cardiothoracic Vascular Surgery); ATTEND Thoracic Surgery (Cardiothoracic Vascular Surgery)
PROC: 30233N1 Transfusion of Nonautologous Red Blood Cells into Peripheral Vein, Percutaneous Approach (ICD-10-PCS; 2019-03-14)
PROC: 04100JH Bypass Abdominal Aorta to Right Femoral Artery with Synthetic Substitute, Open Approach (ICD-10-PCS; principal; 2019-03-17)
PROC: 04CK0ZZ Extirpation of Matter from Right Femoral Artery, Open Approach (ICD-10-PCS; 2019-03-17)
PROC: 04100JJ Bypass Abdominal Aorta to Left Femoral Artery with Synthetic Substitute, Open Approach (ICD-10-PCS; 2019-03-17)
PROC: 02HV33Z Insertion of Infusion Device into Superior Vena Cava, Percutaneous Approach (ICD-10-PCS; 2019-03-17)
PROC: B548ZZA Ultrasonography of Superior Vena Cava, Guidance (ICD-10-PCS; 2019-03-17)
PROC: 0JB80ZZ Excision of Abdomen Subcutaneous Tissue and Fascia, Open Approach (ICD-10-PCS; 2019-04-03)
PROC: 0JB80ZZ Excision of Abdomen Subcutaneous Tissue and Fascia, Open Approach (ICD-10-PCS; 2019-04-05)
PROC: 02HV33Z Insertion of Infusion Device into Superior Vena Cava, Percutaneous Approach (ICD-10-PCS; 2019-04-05)
PROC: 0J9800Z Drainage of Abdomen Subcutaneous Tissue and Fascia with Drainage Device, Open Approach (ICD-10-PCS; 2019-04-07)
PROC: 0JD80ZZ Extraction of Abdomen Subcutaneous Tissue and Fascia, Open Approach (ICD-10-PCS; 2019-04-09)
PROC: 0JD80ZZ Extraction of Abdomen Subcutaneous Tissue and Fascia, Open Approach (ICD-10-PCS; 2019-04-11)
PROC: 2W03X6Z Change Pressure Dressing on Abdominal Wall (ICD-10-PCS; 2019-04-14)
DX: I70.213 Atherosclerosis of native arteries of extremities with intermittent claudication, bilateral legs (principal); J18.9 Pneumonia, unspecified organism; T81.43XA Infection following a procedure, organ and space surgical site, initial encounter; T81.31XA Disruption of external operation (surgical) wound, not elsewhere classified, initial encounter; I25.10 Atherosclerotic heart disease of native coronary artery without angina pectoris; E78.00 Pure hypercholesterolemia, unspecified; K21.9 Gastro-esophageal reflux disease without esophagitis; I10 Essential (primary) hypertension; Y83.8 Other surgical procedures as the cause of abnormal reaction of the patient, or of later complication, without mention of misadventure at the time of the procedure; Y95 Nosocomial condition; Z95.5 Presence of coronary angioplasty implant and graft; Z79.899 Other long term (current) drug therapy; Z79.82 Long term (current) use of aspirin; Z79.02 Long term (current) use of antithrombotics/antiplatelets; Z88.0 Allergy status to penicillin; Z86.19 Personal history of other infectious and parasitic diseases
CPT/HCPCS: 36415; 36416; 36430; 71045; 71046; 80048; 80202; 81001; 83735; 84100; 85025; 85027; 86850; 86900; 86901; 86921; 87070; 87205; 88184; 88305; 89220; 93005; 94640; C1769; C9113; J0131; J0696; J1100; J1642; J1644; J1885; J1940; J1956; J2001; J2250; J2270; J2370; J2405; J2550; J2704; J2720; J2765; J2795; J3010; J3370; J3490; J7050; J7070; J7620; P9016; P9045; Q0162; Q0163; S0028

== ENCOUNTER 2019-03-14 13:02 | Outpatient (CLI) | payer MEDICARE, MEDICAID ==
--- NOTE | 2019-03-14 14:26 | RAD ---
XR Chest Pa Lat STANDARD HISTORY: Preoperative evaluation COMPARISON: 02/18/2019 FINDINGS: The heart size is normal. The lungs are well expanded without focal areas of consolidation, pneumothorax or pleural effusions. IMPRESSION: No radiographic evidence of acute cardiopulmonary process.
== END 2019-03-14 13:03 | disposition home or self-care (01) ==
LOC: LABBT 13:02
PROVIDERS: ATTEND Thoracic Surgery (Cardiothoracic Vascular Surgery)
DX: Z01.818 Encounter for other preprocedural examination (principal); I73.9 Peripheral vascular disease, unspecified
CPT/HCPCS: 71046; 80048; 85027; 86850; 86900; 86901; 86921; 93005; 93010

== ENCOUNTER 2020-01-13 12:56 | Outpatient (CLI) | payer MEDICARE, MEDICAID ==
--- NOTE | 2020-01-13 14:33 | MRI ---
EXAM: RIGHT SHOULDER MRI WITHOUT IV CONTRAST: 01/13/20 HISTORY: Right shoulder pain. FINDINGS: Multiplanar, multisequence MRI examination of the right shoulder is performed. AC joint arthrosis ryan nges are noted with some subchondral cystic changes, downsloping of the anterior acromion with under surface spurring of the lateral acromion and some undersurface spurring of the distal clavicle. Fluid within the subacromial subdeltoid bursa. Full thickness retracted tears of the supraspinatus and inf raspinatus tendon with retraction back to between the humeral dome and the glenoid. Biceps tendon juanita ears intact. Subscapularis tendon demonstrates some tendinopathy as well as some interstitial and del aminating tears. Prominent subchondral cystic changes of the lesser tuberosity and greater tuberosity with some marrow edema adjacent to the greater tuberosity subchondral cystic change. Severely blunte d, poorly defined superior labrum. The humeral head abuts the undersurface of the lateral acromion. M oderate to severe muscle volume loss of the supraspinatus and infraspinatus muscles. IMPRESSION: Evidence for a complete retracted supraspinatus and infraspinatus tendon tears with moderate muscle v olume loss of the supraspinatus and infraspinatus muscles. Severe AC joint arthrosis. Subchondral cystic changes of the lesser and greater tuberosity with abnor mal marrow edema adjacent to the greater tuberosity subchondral cystic change. Subscapularis tendinop athy with some associated interstitial tearing. Other findings as above. POS: RRE
== END 2020-01-13 12:57 | disposition home or self-care (01) ==
LOC: BICMRI 12:56
PROVIDERS: ATTEND Orthopaedic Surgery
DX: M25.511 Pain in right shoulder (principal); M75.121 Complete rotator cuff tear or rupture of right shoulder, not specified as traumatic; M19.011 Primary osteoarthritis, right shoulder; R60.0 Localized edema

== ENCOUNTER 2020-12-07 08:41 | Outpatient (CLI) | payer MEDICARE, MEDICAID | END 2020-12-07 08:42 | disposition home or self-care (01) | LOC: BICMAMMO 08:41 | PROVIDERS: ATTEND Family Medicine | DX: Z12.31 Encounter for screening mammogram for malignant neoplasm of breast (principal) | CPT/HCPCS: 77063; 77067 ==

== ENCOUNTER 2021-02-11 10:40 | Outpatient (CLI) | payer MEDICARE, MEDICAID, OTHER | END 2021-02-11 10:41 | disposition home or self-care (01) | LOC: RAD 10:40 | PROVIDERS: ATTEND Internal Medicine Critical Care Medicine | DX: R06.00 Dyspnea, unspecified (principal) | CPT/HCPCS: 71046 ==